=== PATIENT | male | born 1940 ===

== ENCOUNTER 2016-10-30 17:17 | Inpatient (IN) | payer MEDICARE ==
[2016-10-30] MEDS ORDERED: Sodium Chloride 0.9% 1,000 ML IV ONE (17:42)
[2016-10-30] MEDS ORDERED: cefTRIAXone IV 1 gm in Dextros 50 ML IV ONE (17:43)
[2016-10-30] MEDS ORDERED: Azithromycin 500 MG in Sodium Chloride 0.9% 250 ML IV STA (17:43)
--- NOTE | 2016-10-30 18:03 | RAD ---
PROCEDURE: CHEST RADIOGRAPH, 1 VIEW HISTORY: SOB COMPARISON: None available. FINDINGS: LUNGS: Suspicious for edis-fe-sspzjhpo pulmonary vascular congestion. PLEURA: No evidence of significant pleural effusion. Blunting of the left costophrenic angle. CARDIOVASCULAR: No evidence of significant cardiomegaly in this portable exam P OSSEOUS STRUCTURES: No significant abnormalities. VISUALIZED UPPER ABDOMEN: Normal. OTHER FINDINGS: None. IMPRESSION: Possible ftfq-an-vziwwawc pulmonary congestion.
[2016-10-30 18:05] LABS: BASO % 0.3 % (0.0-2.0); EOS % 0.3 % (0.0-4.0); HEMATOCRIT 39.3 % (35.0-51.0); LYMPH # 1.2 K/uL (1.0-4.3); LYMPH % 8.4 % (20.0-40.0); MEAN CELL VOLUME 65.6 fL (80.0-94.0); MEAN CORPUSCULAR HEMOGLOBIN 20.7 pg (27.0-31.0); MEAN CORPUSCULAR HGB CONC 31.5 g/dL (33.0-37.0); MEAN PLATELET VOLUME 8.7 fL (7.2-11.7); MONO # 10.9 K/uL (0.0-0.8); PLATELET COUNT 124 K/uL (130-400); RED CELL DISTRIBUTION WIDTH 15.9 % (11.5-14.5); WHITE BLOOD COUNT 13.9 K/uL (4.8-10.8)
[2016-10-30] MEDS ORDERED: Albuterol-Ipratrop 3 mg / 0.5 (3 ml) UD INH STA (18:14)
--- NOTE | 2016-10-30 18:15 | C.PDOC ---
History Of Present Illness 76 y/o male brought in by presents to the ED with complains of increased tremor, nonproductive cough and lethargy x3 days. Pt's baseline with tremor of alzheimers, worse today. Denies SOB, fever, vomiting, or any other complaints. Time Seen by Provider: 10/30/16 17:37 Chief Complaint (Nursing): Weakness/Neurological Deficit History Per: Patient History/Exam Limitations: no limitations Onset/Duration Of Symptoms: Days Current Symptoms Are (Timing): Still Present Fall Associated With With Symptoms: No Severity: Moderate Recent travel outside of the [place]: No - Symptoms Of CVA Recent Head Trauma: No Past Medical History Reviewed: Historical Data, Nursing Documentation, Vital Signs Vital Signs: Last Vital Signs Temp 101.6 F H 10/30/16 19:42 Pulse 107 H 10/30/16 19:26 Resp 20 10/30/16 19:26 BP 144/75 10/30/16 19:26 Pulse Ox 98 10/30/16 19:26 - Medical History PMH: HTN, Parkinson's Disease Family History: States: Unknown Family Hx - Social History Hx Alcohol Use: No Hx Substance Use: No Review Of Systems Except As Marked, All Systems Reviewed And Found Negative. Constitutional: Positive for: Other (lethargy). Negative for: Fever Respiratory: Positive for: Cough. Negative for: Shortness of Breath Gastrointestinal: Negative for: Vomiting Neurological: Positive for: Other (increased tremor) Physical Exam - Physical Exam Appears: Non-toxic, Other (elderly, kyphotic) Skin: Warm, Dry, No Rash, Other (skin tenting) Head: Atraumatic, Normacephalic Ear(s): Bilateral: Normal Nose: Normal Oral Mucosa: Dry Throat: Normal, No Erythema Neck: Normal, Normal ROM, Supple Chest: Symmetrical Cardiovascular: Rhythm Regular, No Murmur Respiratory: No Rales, No Rhonchi, No Wheezing, Other (poor cough effort, increased bronchial sounds bilateral lower lobes) Gastrointestinal/Abdominal: Normal Exam, Soft, No Tenderness, No Guarding, No Rebound Extremity: Normal ROM Extremity: Bilateral: Atraumatic Neurological/Psych: Normal Speech ED Course And Treatment - Laboratory Results Result Diagrams: 10/30/16 17:56 10/30/16 17:56 Lab Interpretation: Abnormal (trop neg.) ECG: Interpreted By Me ECG Rhythm: Sinus Tachycardia ECG Interpretation: Abnormal Rate From EC (BPM) O2 Sat by Pulse Oximetry: 94 (room air) Pulse Ox Interpretation: Abnormal - Radiology CXR: Interpreted by Me CXR Interpretation: Yes: Infiltrates (+ RLL and LLL, R heart boarder obscured) Progress Note: plan: EKG, labs, CXR, comtam, cozaar, rocephin, toradol, tylenol , sinimet Reevaluation Time: 19:07 Reassessment Condition: Improved - Physician Consult Information Outcome Of Conversation: 1800: d/w Dr. Alexys Muñiz- PMD, he refers pt to his partner/daughter Dr. Poonam Muñiz- in ED/bedside @ 1830 Medical Decision Making Medical Decision Making: suspecte pna and/or aspiration pna considering weak cough and advanced dementia and kyposis. started on rocephin/azithro empirically continue hydration. Disposition Doctor Will See Patient In The: Hospital Counseled Patient/Family Regarding: Studies Performed, Diagnosis - Disposition Disposition: HOSPITALIZED Disposition Time: 18:30 Condition: FAIR - Clinical Impression Clinical Impression: Pneumonia, Parkinsonian tremor - Scribe Statement The provider has reviewed the documentation as recorded by the Rachelibjoanne Walker Provider Attestation: All medical record entries made by the Areli were at my direction and personally dictated by me. I have reviewed the chart and agree that the record accurately reflects my personal performance of the history, physical exam, medical decision making, and the department course for this patient. I have also personally directed, reviewed, and agree with the discharge instructions and disposition.
[2016-10-30 18:16] LABS: CHLORIDE 97 mmol/L (98-107); SODIUM 136 mmol/L (132-148)
[2016-10-30 18:17] LABS: POTASSIUM 4.2 mmol/L (3.6-5.2)
[2016-10-30 18:19] LABS: ALKALINE PHOSPHATASE 70 U/L (38-126); AST/SGOT 46 U/L (17-59); BILIRUBIN,TOTAL 0.7 mg/dL (0.2-1.3); BLOOD UREA NITROGEN 17 mg/dL (9-20); CARBON DIOXIDE 27 mmol/L (22-30); GFR AFRICAN-AMERICAN > 60; TOTAL PROTEIN 8.2 g/dL (6.3-8.3)
[2016-10-30 18:20] LABS: ALT/SGPT 20 U/L (21-72); CALCIUM 8.3 mg/dl (8.6-10.4); GLUCOSE,RANDOM 108 mg/dL (75-110)
[2016-10-30 18:21] LABS: ALB/GLOB RATIO 1.1 (1.0-2.1)
[2016-10-30] MEDS ORDERED: cefTRIAXone IV 1 gm in Dextros 50 ML IVPB ONE (18:34)
[2016-10-30] MEDS ORDERED: Sodium Chloride 0.9% 1,000 ML ONE (18:35)
[2016-10-30] MEDS ORDERED: Azithromycin 500mg/250ML NS 500 MG/250 ML BAG IVPB ONE (18:35)
[2016-10-30] MEDS ORDERED: Albuterol-Ipratrop 3 mg / 0.5 (3 ml) UD ONE (18:38)
[2016-10-30 19:05] LABS: NEUTROPHIL 24 % (50-75); TOTAL CELLS COUNTED 100
[2016-10-30 19:07] LABS: BLASTS 63 % (0-0)
--- NOTE | 2016-10-30 23:29 | CP.PCM.HP ---
History of Present Illness - History of Present Illness History of Present Illness: 76 years old male complaining of a cough, fever, generalized weakness for the past few days, with increasing tremors. He is known to have a hypertension, a Parkinson's disease, a mild senile dementia. A CXR in the ED revealed mild pulmonary congestion and possible RLL infiltrates. Her wbc: 13.6. Present on Admission - Present on Admission Any Indicators Present on Admission: No Review of Systems - Constitutional Constitutional: Chills, Fever, Lethargy, Weakness - Respiratory Respiratory: Cough, Chest Congestion - Neurological Neurological: Tremor Past Patient History - Infectious Disease Hx of Infectious Diseases: None - Tetanus Immunizations Tetanus Immunization: Unknown - Past Social History Smoking Status: Never Smoked Alcohol: None Drugs: Denies Home Situation {Lives}: With Family Domestic Violence: Negative - CARDIAC Hx Hypertension: Yes - NEUROLOGICAL Hx Dementia: Yes Hx Parkinson's Disease: Yes - MUSCULOSKELETAL/RHEUMATOLOGICAL Hx Unsteady Gait: Yes - PSYCHIATRIC Hx Substance Use: No - SURGICAL HISTORY Other/Comment: Prostate surgery 2007 - ANESTHESIA Hx Anesthesia: No Meds Allergies/Adverse Reactions: Allergies Allergy/AdvReac Type Severity Reaction Status Date / Time No Known Allergies Allergy Unverified 10/30/16 17:21 Physical Exam - Constitutional Appears: No Acute Distress - Head Exam Head Exam: NORMAL INSPECTION - Eye Exam Eye Exam: Normal appearance - ENT Exam ENT Exam: Normal Exam - Neck Exam Neck exam: Positive for: Normal Inspection - Respiratory Exam Respiratory Exam: Rhonchi Additional comments: Rhonchi both bases. - Cardiovascular Exam Cardiovascular Exam: REGULAR RHYTHM - GI/Abdominal Exam GI & Abdominal Exam: Normal Bowel Sounds, Soft - Rectal Exam Rectal Exam: Deferred - Exam Exam: NORMAL INSPECTION - Back Exam Back exam: NORMAL INSPECTION - Neurological Exam Neurological exam: Alert, Oriented x3 - Psychiatric Exam Psychiatric exam: Anxious - Skin Skin Exam: Dry, Intact, Normal Color Results - Vital Signs Recent Vital Signs: Last Vital Signs Temp 98.6 F 10/30/16 21:27 Pulse 95 H 10/30/16 21:27 Resp 18 10/30/16 21:27 BP 115/61 10/30/16 21:27 Pulse Ox 97 10/30/16 21:27 - Labs Result Diagrams: 10/30/16 17:56 10/30/16 17:56 Assessment & Plan (1) Parkinsonian tremor Assessment and Plan: To continue anti-Parkinson's medications. Status: Chronic (2) Pneumonia Assessment and Plan: Sputum and blood cultures. Start empirically on Rocephin IV and Zithromax PO. Get an echo to assess cardiac chambers and valves. Status: Acute Decision To Admit - Pt Status Changed To: Hospital Disposition Of: Inpatient - Admit Certification Admit to Inpatient:: After my assessment, the patient will require hospitalization for at least two midnights. This is because of the severity of symptoms shown, intensity of services needed, and/or the medical risk in this patient being treated as an outpatient. - InPatient: Physician Admission Certification:: After my assessments, the patient requires hospitalization for at least 2 midnights. - . Bed Request Type: Regular
[2016-10-31] MEDS ORDERED: Pneumococcal 23-Valent Vaccine IM ONE (02:23)
[2016-10-31] MEDS: Enoxaparin 40 mg Syringe SC SCH (10:06)
--- NOTE | 2016-10-31 13:03 | RAD ---
PROCEDURE: CHEST RADIOGRAPH, 1 VIEW HISTORY: pneumonia COMPARISON: October 30, 2016. FINDINGS: LUNGS: Progressive right lower lobe infiltrate more confluent with air bronchograms likely acute pneumonia. PLEURA: No pneumothorax or pleural fluid seen. CARDIOVASCULAR: Stable cardiomegaly. OSSEOUS STRUCTURES: No significant abnormalities. VISUALIZED UPPER ABDOMEN: Normal. OTHER FINDINGS: None. IMPRESSION: Progressive right lower lobe infiltrate/pneumonia.
[2016-10-31] MEDS: Albuterol-Ipratrop 3 mg / 0.5 (3 ml) UD IH SCH (15:50)
--- NOTE | 2016-10-31 16:39 | CP.PCM.PN ---
Subjective - Date & Time of Evaluation Date of Evaluation: 10/31/16 Time of Evaluation: 14:00 - Subjective Subjective: Patient feels better with low grade fever. Repeated CXR reveals a RLL infiltrate. Pro-BNP slightly elevated, but echo result pending. Objective - Vital Signs/Intake and Output Vital Signs (last 24 hours): Temp Pulse Resp BP Pulse Ox 100.9 F H 87 22 108/61 97 10/31/16 16:21 10/31/16 15:50 10/31/16 15:50 10/31/16 15:50 10/31/16 15:50 Intake and Output: 10/31/16 10/31/16 06:59 18:59 Intake Total 350 Balance 350 - Medications Medications: Current Medications Acetaminophen (Tylenol 325mg Tab) 650 mg PO Q6 PRN PRN Reason: Fever >100.4 F Azithromycin (Zithromax) 500 mg PO DAILY [facility] Last Admin: 10/31/16 10:06 Dose: 500 mg Carbidopa/Levodopa (Sinemet) 1 tab PO TID [facility] Last Admin: 10/31/16 13:48 Dose: 1 tab Enoxaparin Sodium (Lovenox) 40 mg SC DAILY [facility] Last Admin: 10/31/16 10:06 Dose: 40 mg Entacapone (Comtan) 200 mg PO Q8 [facility] Guaifenesin/Dextromethorphan (Robitussin Dm) 10 ml PO Q4H PRN PRN Reason: Cough and congestion Ceftriaxone Sodium 1 gm/ (Sodium Chloride) 100 mls @ 100 mls/hr IVPB DAILY [facility] Last Admin: 10/31/16 10:06 Dose: 100 mls/hr Losartan Potassium (Cozaar) 100 mg PO DAILY [facility] Last Admin: 10/31/16 10:06 Dose: 100 mg - Constitutional Appears: No Acute Distress - Head Exam Head Exam: NORMAL INSPECTION - Eye Exam Eye Exam: Normal appearance - ENT Exam ENT Exam: Normal Exam - Respiratory Exam Respiratory Exam: Rhonchi Additional comments: Rhonchi heard at both bases. - Cardiovascular Exam Cardiovascular Exam: REGULAR RHYTHM - GI/Abdominal Exam GI & Abdominal Exam: Soft, Normal Bowel Sounds - Rectal Exam Rectal Exam: Deferred - Exam Exam: NORMAL INSPECTION - Extremities Exam Extremities Exam: Normal Inspection - Back Exam Back Exam: NORMAL INSPECTION - Neurological Exam Neurological Exam: Alert, Awake, Oriented x3 - Psychiatric Exam Psychiatric exam: Anxious - Skin Skin Exam: Dry, Intact, Normal Color Assessment and Plan (1) Parkinsonian tremor Status: Chronic (2) Pneumonia Assessment & Plan: To continue antibiotics. Status: Acute
--- NOTE | 2016-10-31 19:17 | CON ---
DATE: 10/31/2016 REASON FOR CONSULTATION: Tremors. HISTORY OF PRESENT ILLNESS: The patient is a 76-year-old male who was brought in by the with co mplaints of increasing tremor and lethargy over the last 3 days. The patient has a history of [place] son's disease. Last night his noticed that patient is having increase in his tremors and though t he was having a seizure. At the moment, she thinks tremors are a lot better. Denies any other new complaints. REVIEW OF SYSTEMS: Denies any headache, dizziness, chest pain. Positive for cough. Denies any ches t pain, abdominal pain, constipation, diarrhea, dysuria, pyuria, ____sputum production, hallucination s, bad dreams. PAST MEDICAL HISTORY: Includes hypertension, Parkinson's disease. MEDICATIONS: Include ceftriaxone, Comtan, Cozaar, Lovenox, Sinemet, Tylenol, Zithromax. ALLERGIES: No known drug allergies. SOCIAL HISTORY: The patient is a nonsmoker and nonalcoholic. Does not use any illicit drugs. FAMILY HISTORY: Reviewed and noncontributory to the case. PHYSICAL EXAMINATION: GENERAL: The patient is an elderly male lying on the bed, in no acute distress. VITAL SIGNS: His blood pressure is 108/61, heart rate is 87 per minute, breathing at a rate of 16 pe r minute, temperature is 100.9 degrees Fahrenheit. HEENT: Normocephalic, atraumatic. NECK: Supple. There are no carotid bruits. LUNGS: Clear. CARDIOVASCULAR: S1, S2 audible. No murmurs. ABDOMEN: Soft, nontender, bowel sounds present. NEUROLOGIC EXAMINATION: MENTAL STATUS: Awake, alert. He follows simple commands. He is oriented to self, place. CRANIAL NERVES: Pupils are 3 mm bilaterally reactive to light. Visual smith are full. Extraocular movements are intact. There is no facial asymmetry. Palate is upgoing bilaterally and tongue is mi dline. MOTOR: Tone shows positive cogwheeling in both upper extremities. Power is 4/5 all over. Reflexes 1+ and symmetrical. Plantars upgoing on the left side and downgoing on the right side. Gait is defe rred at the moment. Positive resting tremors noted in both upper extremities. SENSORY: Intact to soft touch and pinprick. LABORATORY DATA: Labs reviewed, shows WBC of 13.9, hemoglobin 12.4, hematocrit of 39.3, platelets of 124. Sodium is 136, potassium 4.2, chloride 97, carbon dioxide content of 27, BUN of 17, creatinine 0.9, and glucose of 108. IMPRESSION: Tremors secondary to Parkinson's disease which has been exacerbated likely secondary to underlying pneumonia and increased white cell count. RECOMMENDATIONS: 1. At this time, I will continue the patient on the same dose of Sinemet and Comtan. 2. If patient's tremors get worse again will consider giving very low dose of clonazepam 0.25 mg b.i .d. 3. I do not believe the patient had a seizure as patient was awake and alert and conversive during t he episode when he had increased tremors. 4. The patient to be continued on IV antibiotics. 5. The patient to be started on physical therapy for gait imbalance. 6. Please continue other treatment and supportive care. Thank you for the opportunity to participate in the care of this patient. Krishna Holland MD cc: [id number] TT: 10/31/2016 19:16:58 Confirmation # [id number] Dictation # [id number] el
[2016-10-31] MEDS: Albuterol-Ipratrop 3 mg / 0.5 (3 ml) UD INH SCH (19:46)
[2016-11-01] MEDS: guaiFENesin DM 200 mg-20 mg/10 ml UD PO PRN (00:27)
[2016-11-01] MEDS: Albuterol-Ipratrop 3 mg / 0.5 (3 ml) UD INH SCH ×4 (01:36→19:38)
[2016-11-01 07:18] LABS: BASO % 0.2 % (0.0-2.0); EOS % 0.1 % (0.0-4.0); HEMATOCRIT 33.7 % (35.0-51.0); MEAN CELL VOLUME 65.7 fL (80.0-94.0); MEAN PLATELET VOLUME 8.6 fL (7.2-11.7); MONO # 15.9 K/uL (0.0-0.8); MONO % 78.1 % (0.0-10.0); PLATELET COUNT 98 K/uL (130-400); RED CELL DISTRIBUTION WIDTH 15.7 % (11.5-14.5); WHITE BLOOD COUNT 20.3 K/uL (4.8-10.8)
[2016-11-01 07:54] LABS: CHLORIDE 100 mmol/L (98-107); POTASSIUM 3.8 mmol/L (3.6-5.2); SODIUM 135 mmol/L (132-148)
[2016-11-01 07:56] LABS: GFR AFRICAN-AMERICAN > 60
[2016-11-01 07:57] LABS: ALB/GLOB RATIO 0.9 (1.0-2.1); ALKALINE PHOSPHATASE 54 U/L (38-126); ALT/SGPT 34 U/L (21-72); AST/SGOT 52 U/L (17-59); BILIRUBIN,TOTAL 0.6 mg/dL (0.2-1.3); BLOOD UREA NITROGEN 17 mg/dL (9-20); CALCIUM 7.7 mg/dl (8.6-10.4); CARBON DIOXIDE 28 mmol/L (22-30); GLUCOSE,RANDOM 124 mg/dL (75-110); TOTAL PROTEIN 6.7 g/dL (6.3-8.3)
[2016-11-01] MEDS: Enoxaparin 40 mg Syringe SC SCH (09:41)
[2016-11-01 10:54] LABS: BASOPHIL 4 % (0-2); BLASTS 38 % (0-0); EOSINOPHIL 4 % (0-4); NEUTROPHIL 14 % (50-75); TOTAL CELLS COUNTED 100
[2016-11-01 10:59] LABS: LARGE PLATELETS PRESENT
[2016-11-02] MEDS: guaiFENesin DM 200 mg-20 mg/10 ml UD PO PRN (00:28)
[2016-11-02 07:36] LABS: BASO # 0.1 K/uL (0.0-0.2); BASO % 0.4 % (0.0-2.0); EOS # 0.1 K/uL (0.0-0.7); EOS % 0.3 % (0.0-4.0); HEMATOCRIT 36.9 % (35.0-51.0); LYMPH # 1.4 K/uL (1.0-4.3); LYMPH % 7.4 % (20.0-40.0); MEAN CELL VOLUME 65.5 fL (80.0-94.0); MONO # 15.9 K/uL (0.0-0.8); MONO % 82.3 % (0.0-10.0); NRBC % 0.1 % (0.0-2.0); PLATELET COUNT 105 K/uL (130-400); RED CELL DISTRIBUTION WIDTH 16.1 % (11.5-14.5); WHITE BLOOD COUNT 19.4 K/uL (4.8-10.8)
[2016-11-02] MEDS: Albuterol-Ipratrop 3 mg / 0.5 (3 ml) UD INH SCH ×3 (08:15→20:22)
[2016-11-02] MEDS: Enoxaparin 40 mg Syringe SC SCH (10:34)
[2016-11-02 11:35] LABS: NEUTROPHIL 9 % (50-75)
[2016-11-02 11:36] LABS: EOSINOPHIL 1 % (0-4); REACTIVE LYMPHOCYTES 5 % (0-0)
[2016-11-02 11:37] LABS: BLASTS 20 % (0-0); PROMYELOCYTE 33 % (0-0)
[2016-11-02 11:39] LABS: GIANT PLATELETS PRESENT; LARGE PLATELETS PRESENT
[2016-11-02 11:58] LABS: TOTAL CELLS COUNTED 100
[2016-11-03] MEDS: Albuterol-Ipratrop 3 mg / 0.5 (3 ml) UD INH SCH ×4 (01:17→20:06)
--- NOTE | 2016-11-03 09:20 | CON ---
DATE: 11/03/2016 This is a 76-year-old man who has an abnormal CBC. The patient cannot give me a history. He is lyin g in bed. PHYSICAL EXAMINATION: GENERAL: Lying flat in bed, no acute distress. SKIN: No petechiae, no bruises. HEENT: Anicteric. NODES: None palpable in the axillary, cervical, supraclavicular or inguinal regions. LUNGS: At present are clear. No vertebral tenderness. HEART: S1, S2. ABDOMEN: Shows no liver, no spleen, no tenderness, no rebound, no ascites. EXTREMITIES: No edema. CENTRAL NERVOUS SYSTEM: The patient has a constant tremor and he knows his name, but he is really no t conversing. LABORATORY FINDINGS: Show a white count of about 20,000 with severe left shift including blasts, abo ut 20% blasts, and markedly increasing promyelocytes, myelocytes, very leftward shift. I have ordered a BCR-ABL to rule out a chronic myelogenous leukemia acute crisis and we will have to see about doing a bone marrow aspiration and/or further testing a little later today. At present [facility], I have ordered these tests. Yordy Temple MD cc: [id number] TT: 11/03/2016 09:19:33 Confirmation # [id number] Dictation # [id number]
[2016-11-03] MEDS: Enoxaparin 40 mg Syringe SC SCH (11:22)
--- NOTE | 2016-11-03 12:41 | CARD ---
APPROVED REPORT EKG Measurement Heart [id number] CO 150P59 [id number] <Conclusion> Sinus tachycardia Possible Left atrial enlargement Borderline ECG
--- NOTE | 2016-11-03 17:01 | CP.PCM.PN ---
Subjective - Date & Time of Evaluation Date of Evaluation: 11/03/16 Time of Evaluation: 16:58 - Subjective Subjective: Patient has no complaint of chest pain, or SOB. Still has a productive cough. Seen by Dr Temple: Bone marrow biopsy contemplated. Echo: LVH with normal LVEF and grade I LV diastolic dysfunction. Objective - Vital Signs/Intake and Output Vital Signs (last 24 hours): Temp Pulse Resp BP Pulse Ox 97.8 F 89 20 122/66 95 11/03/16 15:00 11/03/16 15:00 11/03/16 15:00 11/03/16 15:00 11/03/16 15:00 Intake and Output: 11/03/16 11/03/16 06:59 18:59 Intake Total 450 Output Total 400 Balance 450 -400 - Medications Medications: Current Medications Acetaminophen (Tylenol 325mg Tab) 650 mg PO Q6 PRN PRN Reason: Fever >100.4 F Last Admin: 11/01/16 13:11 Dose: 650 mg Albuterol/Ipratropium (Duoneb 3 Mg/0.5 Mg (3 Ml) Ud) 3 ml INH RQ6 [facility] Last Admin: 11/03/16 14:44 Dose: Not Given Azithromycin (Zithromax) 500 mg PO DAILY [facility] Last Admin: 11/03/16 11:24 Dose: 500 mg Carbidopa/Levodopa (Sinemet) 1 tab PO TID [facility] Last Admin: 11/03/16 13:22 Dose: 1 tab Enoxaparin Sodium (Lovenox) 40 mg SC DAILY [facility] Last Admin: 11/03/16 11:22 Dose: 40 mg Entacapone (Comtan) 200 mg PO Q8H [facility] Last Admin: 11/03/16 13:22 Dose: 200 mg Guaifenesin/Dextromethorphan (Robitussin Dm) 10 ml PO Q4H PRN PRN Reason: Cough and congestion Last Admin: 11/02/16 00:28 Dose: 10 ml Ceftriaxone Sodium 1 gm/ (Sodium Chloride) 100 mls @ 100 mls/hr IVPB DAILY [facility] Last Admin: 11/03/16 11:23 Dose: 100 mls/hr Losartan Potassium (Cozaar) 100 mg PO DAILY [facility] Last Admin: 11/03/16 11:24 Dose: 100 mg - Labs Labs: 11/02/16 07:07 11/01/16 07:13 - Constitutional Appears: No Acute Distress, Chronically Ill - Head Exam Head Exam: NORMAL INSPECTION - Eye Exam Eye Exam: Normal appearance - ENT Exam ENT Exam: Normal Exam - Neck Exam Neck Exam: Normal Inspection - Respiratory Exam Additional comments: Rhonchi right base. - Cardiovascular Exam Cardiovascular Exam: REGULAR RHYTHM, Murmur - GI/Abdominal Exam GI & Abdominal Exam: Soft, Normal Bowel Sounds - Rectal Exam Rectal Exam: Deferred - Exam Exam: NORMAL INSPECTION - Extremities Exam Extremities Exam: Normal Inspection - Back Exam Back Exam: NORMAL INSPECTION - Neurological Exam Neurological Exam: Alert, Awake, Oriented x3 - Psychiatric Exam Psychiatric exam: Anxious - Skin Skin Exam: Intact, Normal Color, Warm Assessment and Plan (1) Parkinsonian tremor Assessment & Plan: To continue meds as per DR Nadira Holland. Status: Chronic (2) Pneumonia Status: Acute (3) Leukocytosis (leucocytosis) Assessment & Plan: Awaiting w/u by Dr Temple and bone marrow biopsy. Status: Acute - Assessment and Plan (Free Text) Assessment: To continue antibiotics, bronchodilators by nebulizer.
--- NOTE | 2016-11-03 17:31 | CP.PCM.PN ---
Subjective - Date & Time of Evaluation Date of Evaluation: 11/03/16 Time of Evaluation: 17:31 - Subjective Subjective: Peripheral blood showing 20% myeloid blasts. Plan- Will draw flow cytometry, LDH, coags and fibrinogen. Unclear if patient is a candidate for chemo, will need to be transferred to a facility for leukemia treatment. Have left message for regarding the need to have a discussion regarding lab work and diagnosis Objective - Vital Signs/Intake and Output Vital Signs (last 24 hours): Temp Pulse Resp BP Pulse Ox 97.8 F 89 20 122/66 95 11/03/16 15:00 11/03/16 15:00 11/03/16 15:00 11/03/16 15:00 11/03/16 15:00 Intake and Output: 11/03/16 11/03/16 06:59 18:59 Intake Total 450 Output Total 400 Balance 450 -400 - Medications Medications: Current Medications Acetaminophen (Tylenol 325mg Tab) 650 mg PO Q6 PRN PRN Reason: Fever >100.4 F Last Admin: 11/01/16 13:11 Dose: 650 mg Albuterol/Ipratropium (Duoneb 3 Mg/0.5 Mg (3 Ml) Ud) 3 ml INH RQ6 [facility] Last Admin: 11/03/16 14:44 Dose: Not Given Azithromycin (Zithromax) 500 mg PO DAILY [facility] Last Admin: 11/03/16 11:24 Dose: 500 mg Carbidopa/Levodopa (Sinemet) 1 tab PO TID [facility] Last Admin: 11/03/16 13:22 Dose: 1 tab Enoxaparin Sodium (Lovenox) 40 mg SC DAILY [facility] Last Admin: 11/03/16 11:22 Dose: 40 mg Entacapone (Comtan) 200 mg PO Q8H [facility] Last Admin: 11/03/16 13:22 Dose: 200 mg Guaifenesin/Dextromethorphan (Robitussin Dm) 10 ml PO Q4H PRN PRN Reason: Cough and congestion Last Admin: 11/02/16 00:28 Dose: 10 ml Ceftriaxone Sodium 1 gm/ (Sodium Chloride) 100 mls @ 100 mls/hr IVPB DAILY [facility] Last Admin: 11/03/16 11:23 Dose: 100 mls/hr Losartan Potassium (Cozaar) 100 mg PO DAILY [facility] Last Admin: 11/03/16 11:24 Dose: 100 mg - Labs Labs: 11/02/16 07:07 11/01/16 07:13
--- NOTE | 2016-11-03 17:34 | CARD ---
APPROVED REPORT EXAM: Two-dimensional and M-mode echocardiogram with Doppler and color Doppler. Other Information Quality : GoodRhythm : NSR INDICATION pulmonary congestion, pneumonia RISK FACTORS Hypertension M-Mode DIMENSIONS RVDd1.51 (2.1-3.2cm)Left Atrium (MM)3.39 (2.5-4.0cm) IVSd0.59 (0.7-1.1cm)Aortic Root3.02 (2.2-3.7cm) LVDd3.91 (4.0-5.6cm)Aortic Cusp Exc.1.18 (1.5-2.0cm) PWd1.00 (0.7-1.1cm)FS (%) 45 % LVDs2.14 (2.0-3.8cm)LVEF (%)77 (>50%) Aortic Valve AoV Peak Gmgvjeiu065.7cm/Nurys Peak GR.14mmHg Mitral Valve MV E Lkaqbnqm85.3cm/sMV A Vqmhkiow864.5cm/sE/A ratio0.6 TDI E/Lateral E'0.0E/Medial E'0.0 Tricuspid Valve TR Peak [id number]/sTR Peak Gr.[id number] LEFT VENTRICLE The left ventricle is normal size. Proximal septal thickening is noted. The left ventricular function is normal. The left ventricular ejection fraction is within the normal range. There is normal LV segmental wall motion. Transmitral Doppler flow pattern is Grade I-abnormal relaxation pattern. RIGHT VENTRICLE The right ventricle is normal size. There is normal right ventricular wall thickness. The right ventricular systolic function is normal. ATRIA The left atrium size is normal. The right atrium size is normal. AORTIC VALVE The aortic valve is moderately thickened. MITRAL VALVE The mitral valve is moderately thickened. TRICUSPID VALVE There is no tricuspid valve regurgitation noted. GREAT VESSELS The aortic root is normal in size. The IVC is normal in size and collapses >50% with inspiration. PERICARDIAL EFFUSION There is a trace loculated anterior pericardial effusion. <Conclusion> The left ventricle is normal size. Proximal septal thickening is noted. The left ventricular function is normal. The left ventricular ejection fraction is within the normal range. There is normal LV segmental wall motion. Transmitral Doppler flow pattern is Grade I-abnormal relaxation pattern.
[2016-11-03] MEDS: guaiFENesin DM 200 mg-20 mg/10 ml UD PO PRN (17:58)
[2016-11-04] MEDS: guaiFENesin DM 200 mg-20 mg/10 ml UD PO PRN (00:46)
[2016-11-04] MEDS: Albuterol-Ipratrop 3 mg / 0.5 (3 ml) UD INH SCH ×4 (01:50→19:04)
[2016-11-04 06:40] LABS: HEMATOCRIT 35.7 % (35.0-51.0); MEAN CELL VOLUME 64.9 fL (80.0-94.0); MEAN CORPUSCULAR HEMOGLOBIN 21.1 pg (27.0-31.0); MEAN CORPUSCULAR HGB CONC 32.5 g/dL (33.0-37.0); MEAN PLATELET VOLUME 8.9 fL (7.2-11.7); PLATELET COUNT 145 K/uL (130-400); RED CELL DISTRIBUTION WIDTH 15.6 % (11.5-14.5); WHITE BLOOD COUNT 36.7 K/uL (4.8-10.8)
[2016-11-04 07:13] LABS: INR 1.2
[2016-11-04] MEDS: Enoxaparin 40 mg Syringe SC SCH (11:37)
--- NOTE | 2016-11-04 12:06 | RAD ---
HISTORY: RLL infiltrates, F/U. COMPARISON: 10/31/2016 TECHNIQUE: Chest PA and lateral FINDINGS: LUNGS: Improving opacity at right base. No other abnormal pulmonary PLEURA: Opacity identified. CARDIOVASCULAR: Normal heart size. Right hilar prominence, likely due to oblique positioning of patient. OSSEOUS STRUCTURES: No significant abnormalities. VISUALIZED UPPER ABDOMEN: Normal. OTHER FINDINGS: None. IMPRESSION: Improving right basilar opacity.
[2016-11-04 13:25] LABS: BLASTS 34 % (0-0); NEUTROPHIL 8 % (50-75); REACTIVE LYMPHOCYTES 7 % (0-0); TOTAL CELLS COUNTED 100
[2016-11-04 13:28] LABS: LARGE PLATELETS PRESENT
--- NOTE | 2016-11-04 17:28 | CP.PCM.PN ---
Subjective - Date & Time of Evaluation Date of Evaluation: 11/04/16 Time of Evaluation: 17:15 - Subjective Subjective: Patient is in bed, denies feeling weak. Poor appetite, no bleeding reported. He is very slow to respond, both verbally and physical movements because of the Parkinson's disease, but is able to comprehend. Have discussed with patient and regarding the possibility of leukemia, they are reluctant to consider transfer to [place] at this time. Plan- Wait for flow results . Will discuss with daughter as well. Prognosis guarded, because of age , performance status and comorbidities. Consider PT Objective - Vital Signs/Intake and Output Vital Signs (last 24 hours): Temp Pulse Resp BP Pulse Ox 98.6 F 94 H 20 145/79 95 11/04/16 16:00 11/04/16 16:00 11/04/16 16:00 11/04/16 16:00 11/04/16 16:00 Intake and Output: 11/04/16 11/04/16 06:59 18:59 Intake Total 600 Balance 600 - Medications Medications: Current Medications Acetaminophen (Tylenol 325mg Tab) 650 mg PO Q6 PRN PRN Reason: Fever >100.4 F Last Admin: 11/01/16 13:11 Dose: 650 mg Albuterol/Ipratropium (Duoneb 3 Mg/0.5 Mg (3 Ml) Ud) 3 ml INH RQ6 [facility] Last Admin: 11/04/16 13:40 Dose: 3 ml Azithromycin (Zithromax) 500 mg PO DAILY [facility] Last Admin: 11/04/16 11:37 Dose: 500 mg Carbidopa/Levodopa (Sinemet) 1 tab PO TID [facility] Last Admin: 11/04/16 14:46 Dose: 1 tab Enoxaparin Sodium (Lovenox) 40 mg SC DAILY [facility] Last Admin: 11/04/16 11:37 Dose: 40 mg Entacapone (Comtan) 200 mg PO Q8H [facility] Last Admin: 11/04/16 11:34 Dose: 200 mg Guaifenesin/Dextromethorphan (Robitussin Dm) 10 ml PO Q4H PRN PRN Reason: Cough and congestion Last Admin: 11/04/16 00:46 Dose: 10 ml Ceftriaxone Sodium 1 gm/ (Sodium Chloride) 100 mls @ 100 mls/hr IVPB DAILY [facility] Last Admin: 11/04/16 11:35 Dose: 100 mls/hr Losartan Potassium (Cozaar) 100 mg PO DAILY [facility] Last Admin: 11/04/16 11:34 Dose: 100 mg - Labs Labs: 11/04/16 06:24 11/01/16 07:13 PT 13.8 SECONDS (9.7-12.2) H 11/04/16 06:24 INR 1.2 11/04/16 06:24 APTT 34 SECONDS (21-34) 11/04/16 06:24
--- NOTE | 2016-11-04 21:29 | CP.PCM.PN ---
Subjective - Date & Time of Evaluation Date of Evaluation: 11/04/16 Time of Evaluation: 21:27 - Subjective Subjective: Patient feels better, afebrile. WBC: 36,000. CXR: improving RLL infiltrates. Awaiting hematoly w/u. Objective - Vital Signs/Intake and Output Vital Signs (last 24 hours): Temp Pulse Resp BP Pulse Ox 98.6 F 94 H 20 145/79 95 11/04/16 16:00 11/04/16 16:00 11/04/16 16:00 11/04/16 16:00 11/04/16 16:00 - Medications Medications: Current Medications Acetaminophen (Tylenol 325mg Tab) 650 mg PO Q6 PRN PRN Reason: Fever >100.4 F Last Admin: 11/01/16 13:11 Dose: 650 mg Albuterol/Ipratropium (Duoneb 3 Mg/0.5 Mg (3 Ml) Ud) 3 ml INH RQ6 [facility] Last Admin: 11/04/16 19:04 Dose: 3 ml Azithromycin (Zithromax) 500 mg PO DAILY [facility] Last Admin: 11/04/16 11:37 Dose: 500 mg Carbidopa/Levodopa (Sinemet) 1 tab PO TID [facility] Last Admin: 11/04/16 17:55 Dose: 1 tab Enoxaparin Sodium (Lovenox) 40 mg SC DAILY [facility] Last Admin: 11/04/16 11:37 Dose: 40 mg Entacapone (Comtan) 200 mg PO Q8H [facility] Last Admin: 11/04/16 17:52 Dose: 200 mg Guaifenesin/Dextromethorphan (Robitussin Dm) 10 ml PO Q4H PRN PRN Reason: Cough and congestion Last Admin: 11/04/16 00:46 Dose: 10 ml Ceftriaxone Sodium 1 gm/ (Sodium Chloride) 100 mls @ 100 mls/hr IVPB DAILY [facility] Last Admin: 11/04/16 11:35 Dose: 100 mls/hr Losartan Potassium (Cozaar) 100 mg PO DAILY [facility] Last Admin: 11/04/16 11:34 Dose: 100 mg Zolpidem Tartrate (Ambien) 5 mg PO HS PRN PRN Reason: Insomnia - Labs Labs: 11/04/16 06:24 11/01/16 07:13 PT 13.8 SECONDS (9.7-12.2) H 11/04/16 06:24 INR 1.2 11/04/16 06:24 APTT 34 SECONDS (21-34) 11/04/16 06:24 - Constitutional Appears: No Acute Distress, Chronically Ill - Head Exam Head Exam: NORMAL INSPECTION - Eye Exam Eye Exam: Normal appearance - ENT Exam ENT Exam: Normal Exam - Neck Exam Neck Exam: Normal Inspection - Respiratory Exam Respiratory Exam: Rhonchi Additional comments: Rhonchi at the right base. - Cardiovascular Exam Cardiovascular Exam: REGULAR RHYTHM - GI/Abdominal Exam GI & Abdominal Exam: Soft, Normal Bowel Sounds - Rectal Exam Rectal Exam: Deferred - Exam Exam: NORMAL INSPECTION - Extremities Exam Extremities Exam: Normal Inspection - Back Exam Back Exam: NORMAL INSPECTION - Neurological Exam Neurological Exam: Alert, Awake, Oriented x3 - Psychiatric Exam Psychiatric exam: Anxious - Skin Skin Exam: Intact, Normal Color, Warm Assessment and Plan (1) Parkinsonian tremor Status: Chronic (2) Pneumonia Assessment & Plan: To continue antibiotics. Status: Acute (3) Leukocytosis (leucocytosis) Assessment & Plan: Awaiting w/u. Status: Acute
[2016-11-05] MEDS: Albuterol-Ipratrop 3 mg / 0.5 (3 ml) UD INH SCH ×4 (01:19→20:06)
[2016-11-05] MEDS: Enoxaparin 40 mg Syringe SC SCH (10:13)
--- NOTE | 2016-11-05 21:29 | CP.PCM.PN ---
Subjective - Date & Time of Evaluation Date of Evaluation: 11/05/16 Time of Evaluation: 21:27 - Subjective Subjective: Patient feels better, with less productive cough, no SOB, no fever. Awaiting oncology w/u. Needs PT. Discussed subacute rehabilitation with the family. Objective - Vital Signs/Intake and Output Vital Signs (last 24 hours): Temp Pulse Resp BP Pulse Ox 99.4 F 101 H 20 132/74 95 11/05/16 15:00 11/05/16 15:00 11/05/16 15:00 11/05/16 15:00 11/05/16 15:00 Intake and Output: 11/05/16 11/06/16 18:59 06:59 Intake Total 950 Balance 950 - Medications Medications: Current Medications Acetaminophen (Tylenol 325mg Tab) 650 mg PO Q6 PRN PRN Reason: Fever >100.4 F Last Admin: 11/01/16 13:11 Dose: 650 mg Albuterol/Ipratropium (Duoneb 3 Mg/0.5 Mg (3 Ml) Ud) 3 ml INH RQ6 [facility] Last Admin: 11/05/16 20:06 Dose: 3 ml Azithromycin (Zithromax) 500 mg PO DAILY [facility] Last Admin: 11/05/16 10:13 Dose: 500 mg Carbidopa/Levodopa (Sinemet) 1 tab PO TID [facility] Last Admin: 11/05/16 17:51 Dose: 1 tab Enoxaparin Sodium (Lovenox) 40 mg SC DAILY [facility] Last Admin: 11/05/16 10:13 Dose: 40 mg Entacapone (Comtan) 200 mg PO Q8H [facility] Last Admin: 11/05/16 17:51 Dose: 200 mg Guaifenesin/Dextromethorphan (Robitussin Dm) 10 ml PO Q4H PRN PRN Reason: Cough and congestion Last Admin: 11/04/16 00:46 Dose: 10 ml Ceftriaxone Sodium 1 gm/ (Sodium Chloride) 100 mls @ 100 mls/hr IVPB DAILY [facility] Last Admin: 11/05/16 10:14 Dose: 100 mls/hr Losartan Potassium (Cozaar) 100 mg PO DAILY [facility] Last Admin: 11/05/16 10:13 Dose: 100 mg Zolpidem Tartrate (Ambien) 5 mg PO HS PRN PRN Reason: Insomnia - Labs Labs: 11/04/16 06:24 11/01/16 07:13 PT 13.8 SECONDS (9.7-12.2) H 11/04/16 06:24 INR 1.2 11/04/16 06:24 APTT 34 SECONDS (21-34) 11/04/16 06:24 - Constitutional Appears: No Acute Distress - Head Exam Head Exam: NORMAL INSPECTION - Eye Exam Eye Exam: Normal appearance - ENT Exam ENT Exam: Normal Exam - Neck Exam Neck Exam: Normal Inspection - Respiratory Exam Respiratory Exam: Rhonchi Additional comments: Few rhonchi heard at the right base. - Cardiovascular Exam Cardiovascular Exam: REGULAR RHYTHM - GI/Abdominal Exam GI & Abdominal Exam: Soft, Normal Bowel Sounds - Rectal Exam Rectal Exam: Deferred - Exam Exam: NORMAL INSPECTION - Extremities Exam Extremities Exam: Normal Inspection - Back Exam Back Exam: NORMAL INSPECTION - Neurological Exam Neurological Exam: Alert, Oriented x3 - Psychiatric Exam Psychiatric exam: Anxious - Skin Skin Exam: Dry, Intact, Normal Color, Warm Assessment and Plan (1) Parkinsonian tremor Status: Chronic (2) Pneumonia Assessment & Plan: To continue antibiotics. Status: Acute (3) Leukocytosis (leucocytosis) Assessment & Plan: Awaiting w/u. Status: Acute
[2016-11-06 00:22] LABS: BCR-ABL PRIOR RESULT NOT GIVEN; BCR-ABL SOURCE BLOOD; P190 BCR-ABL1 NOT DETECTED; P210 BCR-ABL1 NOT DETECTED
[2016-11-06] MEDS: Albuterol-Ipratrop 3 mg / 0.5 (3 ml) UD INH SCH ×4 (01:10→19:43)
[2016-11-06 07:48] LABS: HEMATOCRIT 36.7 % (35.0-51.0); MEAN CELL VOLUME 65.7 fL (80.0-94.0); MEAN CORPUSCULAR HEMOGLOBIN 20.8 pg (27.0-31.0); MEAN CORPUSCULAR HGB CONC 31.7 g/dL (33.0-37.0); MEAN PLATELET VOLUME 8.8 fL (7.2-11.7); PLATELET COUNT 179 K/uL (130-400); RED CELL DISTRIBUTION WIDTH 15.8 % (11.5-14.5)
[2016-11-06 07:57] LABS: WHITE BLOOD COUNT 51.4 K/uL (4.8-10.8)
[2016-11-06] MEDS: Enoxaparin 40 mg Syringe SC SCH (09:43)
[2016-11-06] MEDS: guaiFENesin DM 200 mg-20 mg/10 ml UD PO PRN (09:43)
[2016-11-06 09:46] LABS: BLASTS 36 % (0-0); NEUTROPHIL 9 % (50-75); REACTIVE LYMPHOCYTES 4 % (0-0); TOTAL CELLS COUNTED 100
--- NOTE | 2016-11-06 17:47 | CP.PCM.PN ---
Subjective - Date & Time of Evaluation Date of Evaluation: 11/06/16 Time of Evaluation: 17:40 - Subjective Subjective: The patient is weak, poorly communicative. Discussed the results of flow cytometry with his daughter, showing 74% blasts, M5 subtype. also discussed with her the urgency of making a decision regarding treatment. They will have a family discussion and let me know regarding the transfer. have also briefly discussed DNR/DNI, blood drawing and palliative care. Plan-Await decision from the family regarding treatment versus palliative care. Because of the rapidly increasing WBC count, will start Hydrea and monitor daily CBC Objective - Vital Signs/Intake and Output Vital Signs (last 24 hours): Temp Pulse Resp BP Pulse Ox 98.7 F 98 H 20 99/66 L 95 11/06/16 16:00 11/06/16 16:00 11/06/16 16:00 11/06/16 16:00 11/06/16 16:00 Intake and Output: 11/06/16 11/06/16 06:59 18:59 Intake Total 320 340 Output Total 0 Balance 320 340 - Medications Medications: Current Medications Acetaminophen (Tylenol 325mg Tab) 650 mg PO Q6 PRN PRN Reason: Fever >100.4 F Last Admin: 11/01/16 13:11 Dose: 650 mg Albuterol/Ipratropium (Duoneb 3 Mg/0.5 Mg (3 Ml) Ud) 3 ml INH RQ6 [facility] Last Admin: 11/06/16 13:33 Dose: 3 ml Azithromycin (Zithromax) 500 mg PO DAILY [facility] Last Admin: 11/06/16 09:43 Dose: 500 mg Carbidopa/Levodopa (Sinemet) 1 tab PO TID [facility] Last Admin: 11/06/16 17:33 Dose: 1 tab Enoxaparin Sodium (Lovenox) 40 mg SC DAILY [facility] Last Admin: 11/06/16 09:43 Dose: 40 mg Entacapone (Comtan) 200 mg PO Q8H [facility] Last Admin: 11/06/16 17:34 Dose: 200 mg Guaifenesin/Dextromethorphan (Robitussin Dm) 10 ml PO Q4H PRN PRN Reason: Cough and congestion Last Admin: 11/06/16 09:43 Dose: 10 ml Hydroxyurea (Hydrea) 500 mg PO BID [facility] Last Admin: 11/06/16 17:34 Dose: 500 mg Ceftriaxone Sodium 1 gm/ (Sodium Chloride) 100 mls @ 100 mls/hr IVPB DAILY [facility] Last Admin: 11/06/16 09:50 Dose: 100 mls/hr Losartan Potassium (Cozaar) 100 mg PO DAILY [facility] Last Admin: 11/06/16 09:43 Dose: 100 mg Zolpidem Tartrate (Ambien) 5 mg PO HS PRN PRN Reason: Insomnia - Labs Labs: 11/06/16 07:23 11/01/16 07:13 PT 13.8 SECONDS (9.7-12.2) H 11/04/16 06:24 INR 1.2 11/04/16 06:24 APTT 34 SECONDS (21-34) 11/04/16 06:24
[2016-11-06 19:48] LABS: HEMATOCRIT 34.5 % (35.0-51.0); MEAN CELL VOLUME 64.8 fL (80.0-94.0); MEAN CORPUSCULAR HEMOGLOBIN 20.9 pg (27.0-31.0); MEAN CORPUSCULAR HGB CONC 32.3 g/dL (33.0-37.0); MEAN PLATELET VOLUME 8.9 fL (7.2-11.7); PLATELET COUNT 185 K/uL (130-400); RED CELL DISTRIBUTION WIDTH 15.6 % (11.5-14.5)
[2016-11-06 20:00] LABS: WHITE BLOOD COUNT 49.6 K/uL (4.8-10.8)
[2016-11-06 21:12] LABS: NEUTROPHIL 4 % (50-75); TOTAL CELLS COUNTED 100
[2016-11-06 21:15] LABS: BLASTS 46 % (0-0)
--- NOTE | 2016-11-06 21:42 | CP.PCM.PN ---
Subjective - Date & Time of Evaluation Date of Evaluation: 11/06/16 Time of Evaluation: 20:00 - Subjective Subjective: Patient lethargic and weak today. Afebrile with no respiratory distress. WBC: 50 ,000 with 70% blasts. Discussed with patient's family about transfer to [place]. Objective - Vital Signs/Intake and Output Vital Signs (last 24 hours): Temp Pulse Resp BP Pulse Ox 98.7 F 98 H 20 99/66 L 95 11/06/16 16:00 11/06/16 16:00 11/06/16 16:00 11/06/16 16:00 11/06/16 16:00 Intake and Output: 11/06/16 11/07/16 18:59 06:59 Intake Total 340 Output Total 0 Balance 340 - Medications Medications: Current Medications Acetaminophen (Tylenol 325mg Tab) 650 mg PO Q6 PRN PRN Reason: Fever >100.4 F Last Admin: 11/01/16 13:11 Dose: 650 mg Albuterol/Ipratropium (Duoneb 3 Mg/0.5 Mg (3 Ml) Ud) 3 ml INH RQ6 [facility] Last Admin: 11/06/16 19:43 Dose: 3 ml Azithromycin (Zithromax) 500 mg PO DAILY [facility] Last Admin: 11/06/16 09:43 Dose: 500 mg Carbidopa/Levodopa (Sinemet) 1 tab PO TID [facility] Last Admin: 11/06/16 17:33 Dose: 1 tab Enoxaparin Sodium (Lovenox) 40 mg SC DAILY [facility] Last Admin: 11/06/16 09:43 Dose: 40 mg Entacapone (Comtan) 200 mg PO Q8H [facility] Last Admin: 11/06/16 17:34 Dose: 200 mg Guaifenesin/Dextromethorphan (Robitussin Dm) 10 ml PO Q4H PRN PRN Reason: Cough and congestion Last Admin: 11/06/16 09:43 Dose: 10 ml Hydroxyurea (Hydrea) 500 mg PO BID [facility] Last Admin: 11/06/16 17:34 Dose: 500 mg Ceftriaxone Sodium 1 gm/ (Sodium Chloride) 100 mls @ 100 mls/hr IVPB DAILY [facility] Last Admin: 11/06/16 09:50 Dose: 100 mls/hr Losartan Potassium (Cozaar) 100 mg PO DAILY [facility] Last Admin: 11/06/16 09:43 Dose: 100 mg Zolpidem Tartrate (Ambien) 5 mg PO HS PRN PRN Reason: Insomnia - Labs Labs: 11/06/16 19:42 11/01/16 07:13 PT 13.8 SECONDS (9.7-12.2) H 11/04/16 06:24 INR 1.2 11/04/16 06:24 APTT 34 SECONDS (21-34) 11/04/16 06:24 - Constitutional Appears: No Acute Distress, Chronically Ill - Head Exam Head Exam: NORMAL INSPECTION - Eye Exam Eye Exam: Normal appearance - ENT Exam ENT Exam: Normal Exam - Neck Exam Neck Exam: Normal Inspection - Respiratory Exam Additional comments: Rhonchi heard at the right base. - Cardiovascular Exam Cardiovascular Exam: REGULAR RHYTHM - GI/Abdominal Exam GI & Abdominal Exam: Soft, Normal Bowel Sounds - Rectal Exam Rectal Exam: Deferred - Exam Exam: NORMAL INSPECTION - Extremities Exam Extremities Exam: Normal Inspection - Back Exam Back Exam: NORMAL INSPECTION - Neurological Exam Additional comments: Lethargic. - Psychiatric Exam Additional comments: Lethargic. - Skin Skin Exam: Dry, Intact, Normal Color, Warm Assessment and Plan (1) Parkinsonian tremor Assessment & Plan: To continue same meds. Status: Chronic (2) Pneumonia Assessment & Plan: To continue antibiotics. Status: Acute (3) Leukocytosis (leucocytosis) Assessment & Plan: For possible transfer to [facility] for further management. Status: Acute
[2016-11-07] MEDS: Albuterol-Ipratrop 3 mg / 0.5 (3 ml) UD INH SCH ×4 (01:15→20:28)
[2016-11-07 07:40] LABS: HEMATOCRIT 35.3 % (35.0-51.0); MEAN CELL VOLUME 65.5 fL (80.0-94.0); MEAN CORPUSCULAR HEMOGLOBIN 20.8 pg (27.0-31.0); MEAN CORPUSCULAR HGB CONC 31.7 g/dL (33.0-37.0); MEAN PLATELET VOLUME 8.9 fL (7.2-11.7); PLATELET COUNT 192 K/uL (130-400); RED CELL DISTRIBUTION WIDTH 15.4 % (11.5-14.5)
[2016-11-07 07:44] LABS: WHITE BLOOD COUNT 46.4 K/uL (4.8-10.8)
[2016-11-07 07:45] LABS: POTASSIUM 4.1 mmol/L (3.6-5.2)
[2016-11-07 07:48] LABS: CALCIUM 7.9 mg/dl (8.6-10.4)
[2016-11-07] MEDS: guaiFENesin DM 200 mg-20 mg/10 ml UD PO PRN (10:37)
[2016-11-07] MEDS: Enoxaparin 40 mg Syringe SC SCH (10:38)
[2016-11-07 11:02] LABS: EOS # 0.4 K/uL (0.0-0.7); LYMPH # 4.7 K/uL (1.0-4.3)
[2016-11-07 11:05] LABS: BLASTS 36 % (0-0); EOSINOPHIL 2 % (0-4); NEUTROPHIL 5 % (50-75); TOTAL CELLS COUNTED 100
[2016-11-07 11:06] LABS: GIANT PLATELETS PRESENT; LARGE PLATELETS PRESENT
--- NOTE | 2016-11-07 21:27 | CP.PCM.PN ---
Subjective - Date & Time of Evaluation Date of Evaluation: 11/07/16 Time of Evaluation: 12:30 - Subjective Subjective: Patient is more alert today, with a better appetite, and no SOB. WBC: 46.4. Awaiting family's decision whether to transfer the patient to [facility] or not. Objective - Vital Signs/Intake and Output Vital Signs (last 24 hours): Temp Pulse Resp BP Pulse Ox 98.9 F 100 H 20 136/71 98 11/07/16 15:01 11/07/16 15:01 11/07/16 15:01 11/07/16 15:00 11/07/16 15:01 Intake and Output: 11/07/16 11/08/16 18:59 06:59 Intake Total 400 Balance 400 - Medications Medications: Current Medications Acetaminophen (Tylenol 325mg Tab) 650 mg PO Q6 PRN PRN Reason: Fever >100.4 F Last Admin: 11/01/16 13:11 Dose: 650 mg Albuterol/Ipratropium (Duoneb 3 Mg/0.5 Mg (3 Ml) Ud) 3 ml INH RQ6 [facility] Last Admin: 11/07/16 20:28 Dose: 3 ml Azithromycin (Zithromax) 500 mg PO DAILY [facility] Last Admin: 11/07/16 10:37 Dose: 500 mg Carbidopa/Levodopa (Sinemet) 1 tab PO TID [facility] Last Admin: 11/07/16 18:21 Dose: 1 tab Enoxaparin Sodium (Lovenox) 40 mg SC DAILY [facility] Last Admin: 11/07/16 10:38 Dose: 40 mg Entacapone (Comtan) 200 mg PO Q8H [facility] Last Admin: 11/07/16 18:21 Dose: 200 mg Guaifenesin/Dextromethorphan (Robitussin Dm) 10 ml PO Q4H PRN PRN Reason: Cough and congestion Last Admin: 11/07/16 10:37 Dose: 10 ml Hydroxyurea (Hydrea) 500 mg PO BID [facility] Last Admin: 11/07/16 18:08 Dose: 500 mg Ceftriaxone Sodium 1 gm/ (Sodium Chloride) 100 mls @ 100 mls/hr IVPB DAILY [facility] Last Admin: 11/07/16 10:43 Dose: 100 mls/hr Losartan Potassium (Cozaar) 100 mg PO DAILY [facility] Last Admin: 11/07/16 10:14 Dose: 100 mg Zolpidem Tartrate (Ambien) 5 mg PO HS PRN PRN Reason: Insomnia - Labs Labs: 11/07/16 07:26 11/07/16 07:26 PT 13.8 SECONDS (9.7-12.2) H 11/04/16 06:24 INR 1.2 11/04/16 06:24 APTT 34 SECONDS (21-34) 11/04/16 06:24 - Constitutional Appears: No Acute Distress - Head Exam Head Exam: NORMAL INSPECTION - Eye Exam Eye Exam: Normal appearance - ENT Exam ENT Exam: Normal Exam - Neck Exam Neck Exam: Normal Inspection - Respiratory Exam Additional comments: Few rhonchi heard at the right base. - Cardiovascular Exam Cardiovascular Exam: REGULAR RHYTHM - GI/Abdominal Exam GI & Abdominal Exam: Soft, Normal Bowel Sounds - Rectal Exam Rectal Exam: Deferred - Exam Exam: NORMAL INSPECTION - Extremities Exam Extremities Exam: Normal Inspection - Back Exam Back Exam: NORMAL INSPECTION - Neurological Exam Neurological Exam: Alert, Awake, Oriented x3 - Psychiatric Exam Psychiatric exam: Anxious - Skin Skin Exam: Dry, Intact, Normal Color, Warm Assessment and Plan (1) Parkinsonian tremor Status: Chronic (2) Pneumonia Assessment & Plan: To continue antibiotics. 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 Status: Acute
[2016-11-08] MEDS: Albuterol-Ipratrop 3 mg / 0.5 (3 ml) UD INH SCH ×4 (01:44→20:56)
[2016-11-08] MEDS: Enoxaparin 40 mg Syringe SC SCH (09:27)
--- NOTE | 2016-11-08 20:00 | CP.PCM.PN ---
Subjective - Date & Time of Evaluation Date of Evaluation: 11/08/16 Time of Evaluation: 16:45 - Subjective Subjective: Patient has no complaint of SOB. Alert, oriented, afebrile. Patient agrees to be transferred to [facility]. Objective - Vital Signs/Intake and Output Vital Signs (last 24 hours): Temp Pulse Resp BP Pulse Ox 99.5 F 104 H 20 109/61 95 11/08/16 16:10 11/08/16 16:10 11/08/16 16:10 11/08/16 16:10 11/08/16 16:10 Intake and Output: 11/08/16 11/09/16 18:59 06:59 Intake Total 120 Balance 120 - Medications Medications: Current Medications Acetaminophen (Tylenol 325mg Tab) 650 mg PO Q6 PRN PRN Reason: Fever >100.4 F Last Admin: 11/01/16 13:11 Dose: 650 mg Albuterol/Ipratropium (Duoneb 3 Mg/0.5 Mg (3 Ml) Ud) 3 ml INH RQ6 [facility] Last Admin: 11/08/16 01:44 Dose: Not Given Azithromycin (Zithromax) 500 mg PO DAILY [facility] Last Admin: 11/08/16 09:28 Dose: 500 mg Carbidopa/Levodopa (Sinemet) 1 tab PO TID [facility] Last Admin: 11/08/16 17:12 Dose: 1 tab Enoxaparin Sodium (Lovenox) 40 mg SC DAILY [facility] Last Admin: 11/08/16 09:27 Dose: 40 mg Entacapone (Comtan) 200 mg PO Q8H [facility] Last Admin: 11/08/16 17:12 Dose: 200 mg Guaifenesin/Dextromethorphan (Robitussin Dm) 10 ml PO Q4H PRN PRN Reason: Cough and congestion Last Admin: 11/07/16 10:37 Dose: 10 ml Hydroxyurea (Hydrea) 500 mg PO DAILY [facility] Ceftriaxone Sodium 1 gm/ (Sodium Chloride) 100 mls @ 100 mls/hr IVPB DAILY [facility] Last Admin: 11/08/16 09:32 Dose: 100 mls/hr Losartan Potassium (Cozaar) 100 mg PO DAILY [facility] Last Admin: 11/08/16 09:27 Dose: 100 mg Zolpidem Tartrate (Ambien) 5 mg PO HS PRN PRN Reason: Insomnia - Labs Labs: 11/07/16 07:26 11/07/16 07:26 PT 13.8 SECONDS (9.7-12.2) H 11/04/16 06:24 INR 1.2 11/04/16 06:24 APTT 34 SECONDS (21-34) 11/04/16 06:24 - Constitutional Appears: No Acute Distress, Chronically Ill - Head Exam Head Exam: NORMAL INSPECTION - Eye Exam Eye Exam: Normal appearance - ENT Exam ENT Exam: Normal Exam - Neck Exam Neck Exam: Normal Inspection - Respiratory Exam Additional comments: Rhonchi at the right base. - Cardiovascular Exam Cardiovascular Exam: REGULAR RHYTHM, Murmur - GI/Abdominal Exam GI & Abdominal Exam: Soft, Normal Bowel Sounds - Rectal Exam Rectal Exam: Deferred - Extremities Exam Extremities Exam: Normal Inspection - Back Exam Back Exam: NORMAL INSPECTION - Neurological Exam Neurological Exam: Alert, Awake, Oriented x3 - Psychiatric Exam Psychiatric exam: Anxious - Skin Skin Exam: Dry, Intact, Normal Color, Warm Assessment and Plan (1) Parkinsonian tremor Status: Chronic (2) Pneumonia Assessment & Plan: To continue antibiotics. 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 To be transferred to [facility]. Status: Acute
[2016-11-09] MEDS: Albuterol-Ipratrop 3 mg / 0.5 (3 ml) UD INH SCH ×4 (01:07→19:48)
[2016-11-09 07:12] LABS: HEMATOCRIT 35.7 % (35.0-51.0); MEAN CELL VOLUME 65.2 fL (80.0-94.0); MEAN CORPUSCULAR HEMOGLOBIN 20.5 pg (27.0-31.0); MEAN CORPUSCULAR HGB CONC 31.4 g/dL (33.0-37.0); MEAN PLATELET VOLUME 9.3 fL (7.2-11.7); PLATELET COUNT 162 K/uL (130-400); RED CELL DISTRIBUTION WIDTH 15.6 % (11.5-14.5); WHITE BLOOD COUNT 22.9 K/uL (4.8-10.8)
[2016-11-09 08:38] LABS: POTASSIUM 4.7 mmol/L (3.6-5.2)
[2016-11-09 08:40] LABS: ALB/GLOB RATIO 0.9 (1.0-2.1); BILIRUBIN,TOTAL 0.7 mg/dL (0.2-1.3); TOTAL PROTEIN 7.4 g/dL (6.3-8.3)
[2016-11-09 08:41] LABS: CALCIUM 7.8 mg/dl (8.6-10.4)
[2016-11-09 09:21] LABS: METAMYELOCYTE 2 % (0-0); TOTAL CELLS COUNTED 100
[2016-11-09 09:32] LABS: NEUTROPHIL 7 % (50-75)
[2016-11-09 09:34] LABS: BLASTS 36 % (0-0)
[2016-11-09 09:37] LABS: GIANT PLATELETS PRESENT; LARGE PLATELETS PRESENT
--- NOTE | 2016-11-09 09:45 | RAD ---
HISTORY: F/U RLL infiltrate COMPARISON: 11/04/2016 TECHNIQUE: Chest PA and lateral FINDINGS: LUNGS: Examination technically limited in lateral projection. Stable minimal residual opacity at right base. No infiltrate elsewhere. PLEURA: No pleural effusion. Nonspecific mild elevation of right hemidiaphragm. CARDIOVASCULAR: Mild congestive change. Normal heart size. OSSEOUS STRUCTURES: No significant abnormalities. VISUALIZED UPPER ABDOMEN: Normal. OTHER FINDINGS: None. IMPRESSION: Stable minimal residual opacity at right base. Nonspecific elevation right hemidiaphragm. Mild congestive change. Technically limited examination.
--- NOTE | 2016-11-09 12:45 | CP.PCM.CON ---
History of Present Illness - History of Present Illness History of Present Illness: 76 years old male complaining of a cough, fever, generalized weakness for the past few days, with increasing tremors. He is known to have a hypertension, a Parkinson's disease, a mild senile dementia. A CXR in the ED revealed mild pulmonary congestion and possible RLL infiltrates. Her wbc: 13.6. Admitted for pneumonia and ytreated with Iv ABs PMH: PARKINSONS DEMENTIA PROSTATE CA HTN PSH; PROSTATECTOMY SOCIAL- FORMER SMOKER ONLY BLADDER APPEAR DISTENDED- POSSIBLE OBSTRUCTIVE UROPATHY WILL HAVE DIAZ PLACED STAT OBTAIN RENAL WORKUP Review of Systems - Review of Systems Systems not reviewed;Unavailable: Dementia Past Patient History - Infectious Disease Hx of Infectious Diseases: None - Tetanus Immunizations Tetanus Immunization: Unknown - Past Medical History & Family History Past Medical History?: Yes - Past Social History Smoking Status: Former Smoker Chewing Tobacco Use: No Cigar Use: No - CARDIAC Hx Cardiac Disorders: Yes Hx Hypertension: Yes - PULMONARY Hx Respiratory Disorders: No - NEUROLOGICAL Hx Neurological Disorder: Yes Hx Alzheimer's Disease: Yes Hx Dementia: Yes Hx Parkinson's Disease: Yes - HEENT Hx HEENT Problems: No - RENAL Hx Chronic Kidney Disease: No - ENDOCRINE/METABOLIC Hx Endocrine Disorders: No - HEMATOLOGICAL/ONCOLOGICAL Hx Blood Disorders: No - INTEGUMENTARY Hx Dermatological Problems: No - MUSCULOSKELETAL/RHEUMATOLOGICAL Hx Falls: Yes - GASTROINTESTINAL Hx Gastrointestinal Disorders: No - GENITOURINARY/GYNECOLOGICAL Hx Genitourinary Disorders: Yes Hx Prostate Problems: Yes (prostatectomy 2007) - PSYCHIATRIC Hx Substance Use: No - SURGICAL HISTORY Hx Surgeries: Yes Other/Comment: Prostate surgery 2007 - ANESTHESIA Hx Anesthesia: Yes Hx Anesthesia Reactions: No Hx Malignant Hyperthermia: No Has any member of the family had a problem w/ anesthesia?: No Meds Allergies/Adverse Reactions: Allergies Allergy/AdvReac Type Severity Reaction Status Date / Time No Known Allergies Allergy Unverified 10/30/16 17:21 - Medications Medications: Current Medications Acetaminophen (Tylenol 325mg Tab) 650 mg PO Q6 PRN PRN Reason: Fever >100.4 F Last Admin: 11/01/16 13:11 Dose: 650 mg Albuterol/Ipratropium (Duoneb 3 Mg/0.5 Mg (3 Ml) Ud) 3 ml INH RQ6 [facility] Last Admin: 11/09/16 01:07 Dose: Not Given Azithromycin (Zithromax) 500 mg PO DAILY [facility] Last Admin: 11/09/16 12:22 Dose: Not Given Carbidopa/Levodopa (Sinemet) 1 tab PO TID [facility] Last Admin: 11/09/16 12:22 Dose: Not Given Entacapone (Comtan) 200 mg PO Q8H [facility] Last Admin: 11/09/16 12:23 Dose: Not Given Guaifenesin/Dextromethorphan (Robitussin Dm) 10 ml PO Q4H PRN PRN Reason: Cough and congestion Last Admin: 11/07/16 10:37 Dose: 10 ml Heparin Sodium (Porcine) (Heparin) 5,000 units SC Q8 [facility] Hydroxyurea (Hydrea) 500 mg PO DAILY [facility] Last Admin: 11/09/16 12:22 Dose: Not Given Ceftriaxone Sodium 1 gm/ (Sodium Chloride) 100 mls @ 100 mls/hr IVPB DAILY [facility] Last Admin: 11/09/16 12:16 Dose: 100 mls/hr Zolpidem Tartrate (Ambien) 5 mg PO HS PRN PRN Reason: Insomnia Physical Exam - Constitutional Appears: No Acute Distress, Chronically Ill - Head Exam Head Exam: ATRAUMATIC, NORMAL INSPECTION - Eye Exam Eye Exam: EOMI, Normal appearance - Neck Exam Neck exam: Positive for: Normal Inspection. Negative for: Tenderness - Respiratory Exam Respiratory Exam: Clear to Auscultation Bilateral, NORMAL BREATHING PATTERN - Cardiovascular Exam Cardiovascular Exam: REGULAR RHYTHM, +S1 - GI/Abdominal Exam GI & Abdominal Exam: Distended, Soft - Extremities Exam Extremities exam: Positive for: normal inspection. Negative for: tenderness - Neurological Exam Neurological exam: Altered, Motor Sensory Deficit - Skin Skin Exam: Dry, Warm Results - Vital Signs Recent Vital Signs: Last Vital Signs Temp 98.3 F 11/09/16 07:00 Pulse 106 H 11/09/16 07:00 Resp 20 11/09/16 07:00 BP 143/68 11/09/16 07:00 Pulse Ox 90 L 11/09/16 07:00 - Labs Result Diagrams: 11/09/16 07:01 11/09/16 07:01 Labs: Laboratory Results - last 24 hr 11/09/16 11/09/16 07:01 07:01 WBC 22.9 H D RBC 5.47 Hgb 11.2 L Hct 35.7 MCV 65.2 L MCH 20.5 L MCHC 31.4 L RDW 15.6 H Plt Count 162 MPV 9.3 Neutrophils % (Manual) 7 L Lymphocytes % (Manual) 11 L Monocytes % (Manual) 44 H Metamyelocytes % 2 H Blast Cells % 36 H Platelet Estimate Normal Large Platelets Present Giant Platelets Present Hypochromasia (manual) Slight Poikilocytosis (manual Slight Anisocytosis (manual) Slight Microcytosis (manual) Slight Ovalocytes Slight Sodium 149 H Potassium 4.7 Chloride 112 H Carbon Dioxide 20 L Anion Gap 22 H BUN 107 H* D Creatinine 3.5 H Est GFR ( Amer) 21 Est GFR (Non-Af Amer) 17 Random Glucose 117 H Calcium 7.8 L Total Bilirubin 0.7 AST 230 H D ALT 101 H D Alkaline Phosphatase 79 Total Protein 7.4 Albumin 3.6 Globulin 3.8 Albumin/Globulin Ratio 0.9 L Assessment & Plan (1) MELISSA (acute kidney injury) Status: Acute (2) Leukocytosis (leucocytosis) Status: Acute (3) Pneumonia Status: Acute (4) Parkinsonian tremor Status: Chronic - Assessment and Plan (Free Text) Plan: WILL HAVE DIAZ PLACED RENAL WORKUP IV FLUIDS
[2016-11-09] MEDS: Sodium Chloride 0.9% 1,000 ML IV SCH (13:52)
[2016-11-09 14:47] LABS: PHOSPHOROUS 9.3 mg/dL (2.5-4.5)
[2016-11-09 14:48] LABS: MAGNESIUM 2.7 mg/dL (1.6-2.3)
--- NOTE | 2016-11-09 15:09 | US ---
PROCEDURE: Ultrasound of the Kidneys HISTORY: MELISSA COMPARISON: None available. TECHNIQUE: Sonogram of the kidneys. FINDINGS: RIGHT KIDNEY: Measures: 10.5 x 5.3 x 5.6 cm. Echogenic renal parenchyma. No obstructing calculus or hydronephrosis identified. Evidence of vascular calcifications. LEFT KIDNEY: Measures: 11.3 x 5.4 x 5.6 cm. Echogenic renal parenchyma. No obstructing calculus or hydronephrosis identified. Evidence of vascular calcifications. OTHER FINDINGS: Under distended urinary bladder precludes adequate evaluation. IMPRESSION: Echogenic renal parenchyma may be seen in the setting of medical renal disease.
--- NOTE | 2016-11-09 15:35 | CP.PCM.CON ---
History of Present Illness - History of Present Illness History of Present Illness: palliative consult Requested by Ravi LUKE Reason: goals of care Patient is a 76 yo male admitted on 10/30/2016 with increased tremor, nonproducrive cough and lethargy for 3 astudillo. The CXR upon admission was suggesting pneumonia and Rocephin Iv was started. During hospital's stay WBC marivel up to 46.4 from 13.6 on admission, than droppd to 22.0 today. The BUN and Taffy Puller are elevated at 107/3.5. Patient remains lethargic most of time with periods of alertness. As per , prior to this patient was able to ambulate alone, talk and eat. PMH: Parkinsons, HTN denies Alzheimer and Dementia Hx of Soc. hx: lives at home, Fam Hx: unknown Review of Systems - Review of Systems Systems not reviewed;Unavailable: Acuity of Condition Past Patient History - Infectious Disease Hx of Infectious Diseases: None - Tetanus Immunizations Tetanus Immunization: Unknown - Past Medical History & Family History Past Medical History?: Yes - Past Social History Smoking Status: Former Smoker Chewing Tobacco Use: No Cigar Use: No - CARDIAC Hx Cardiac Disorders: Yes Hx Hypertension: Yes - PULMONARY Hx Respiratory Disorders: No - NEUROLOGICAL Hx Neurological Disorder: Yes Hx Alzheimer's Disease: Yes Hx Dementia: Yes Hx Parkinson's Disease: Yes - HEENT Hx HEENT Problems: No - RENAL Hx Chronic Kidney Disease: No - ENDOCRINE/METABOLIC Hx Endocrine Disorders: No - HEMATOLOGICAL/ONCOLOGICAL Hx Blood Disorders: No - INTEGUMENTARY Hx Dermatological Problems: No - MUSCULOSKELETAL/RHEUMATOLOGICAL Hx Falls: Yes - GASTROINTESTINAL Hx Gastrointestinal Disorders: No - GENITOURINARY/GYNECOLOGICAL Hx Genitourinary Disorders: Yes Hx Prostate Problems: Yes (prostatectomy 2007) - PSYCHIATRIC Hx Substance Use: No - SURGICAL HISTORY Hx Surgeries: Yes Other/Comment: Prostate surgery 2007 - ANESTHESIA Hx Anesthesia: Yes Hx Anesthesia Reactions: No Hx Malignant Hyperthermia: No Has any member of the family had a problem w/ anesthesia?: No Meds Allergies/Adverse Reactions: Allergies Allergy/AdvReac Type Severity Reaction Status Date / Time No Known Allergies Allergy Unverified 10/30/16 17:21 - Medications Medications: Current Medications Acetaminophen (Tylenol 325mg Tab) 650 mg PO Q6 PRN PRN Reason: Fever >100.4 F Last Admin: 11/01/16 13:11 Dose: 650 mg Acetaminophen (Tylenol 650 Mg Supp) 650 mg [place] Q6 PRN PRN Reason: Fever >100.4 F Last Admin: 11/09/16 15:11 Dose: 650 mg Albuterol/Ipratropium (Duoneb 3 Mg/0.5 Mg (3 Ml) Ud) 3 ml INH RQ6 [facility] Last Admin: 11/09/16 13:31 Dose: 3 ml Azithromycin (Zithromax) 500 mg PO DAILY [facility] Last Admin: 11/09/16 12:22 Dose: Not Given Carbidopa/Levodopa (Sinemet) 1 tab PO TID [facility] Last Admin: 11/09/16 14:09 Dose: Not Given Entacapone (Comtan) 200 mg PO Q8H [facility] Last Admin: 11/09/16 12:23 Dose: Not Given Guaifenesin/Dextromethorphan (Robitussin Dm) 10 ml PO Q4H PRN PRN Reason: Cough and congestion Last Admin: 11/07/16 10:37 Dose: 10 ml Heparin Sodium (Porcine) (Heparin) 5,000 units SC Q8 [facility] Last Admin: 11/09/16 15:11 Dose: 5,000 units Hydroxyurea (Hydrea) 500 mg PO DAILY [facility] Last Admin: 11/09/16 12:22 Dose: Not Given Ceftriaxone Sodium 1 gm/ (Sodium Chloride) 100 mls @ 100 mls/hr IVPB DAILY [facility] Last Admin: 11/09/16 12:16 Dose: 100 mls/hr Sodium Chloride (Sodium Chloride 0.9%) 1,000 mls @ 75 mls/hr IV .[id number] [facility] Last Admin: 11/09/16 13:52 Dose: 75 mls/hr Zolpidem Tartrate (Ambien) 5 mg PO HS PRN PRN Reason: Insomnia Physical Exam - Constitutional Appears: Chronically Ill - Head Exam Head Exam: ATRAUMATIC, NORMAL INSPECTION, NORMOCEPHALIC - Eye Exam Eye Exam: EOMI, Normal appearance, PERRL Pupil Exam: NORMAL ACCOMODATION, PERRL - ENT Exam ENT Exam: Normal Exam - Neck Exam Neck exam: Positive for: Normal Inspection - Respiratory Exam Respiratory Exam: Decreased Breath Sounds - Cardiovascular Exam Cardiovascular Exam: Tachycardia, +S1, +S2 - GI/Abdominal Exam GI & Abdominal Exam: Diminished Bowel Sounds - Rectal Exam Rectal Exam: Deferred - Exam Exam: NORMAL INSPECTION - Extremities Exam Extremities exam: Positive for: normal inspection - Back Exam Back exam: NORMAL INSPECTION - Neurological Exam Neurological exam: Motor Sensory Deficit - Psychiatric Exam Psychiatric exam: Flat Affect - Skin Skin Exam: Normal Color, Warm Results - Vital Signs Recent Vital Signs: Last Vital Signs Temp 101.2 F H 11/09/16 15:11 Pulse 106 H 11/09/16 07:00 Resp 20 11/09/16 07:00 BP 143/68 11/09/16 07:00 Pulse Ox 90 L 11/09/16 07:00 - Labs Result Diagrams: 11/09/16 07:01 11/09/16 07:01 Labs: Laboratory Results - last 24 hr 11/09/16 11/09/16 07:01 07:01 WBC 22.9 H D RBC 5.47 Hgb 11.2 L Hct 35.7 MCV 65.2 L MCH 20.5 L MCHC 31.4 L RDW 15.6 H Plt Count 162 MPV 9.3 Neutrophils % (Manual) 7 L Lymphocytes % (Manual) 11 L Monocytes % (Manual) 44 H Metamyelocytes % 2 H Blast Cells % 36 H Platelet Estimate Normal Large Platelets Present Giant Platelets Present Hypochromasia (manual) Slight Poikilocytosis (manual Slight Anisocytosis (manual) Slight Microcytosis (manual) Slight Ovalocytes Slight Sodium 149 H Potassium 4.7 Chloride 112 H Carbon Dioxide 20 L Anion Gap 22 H BUN 107 H* D Creatinine 3.5 H Est GFR ( Amer) 21 Est GFR (Non-Af Amer) 17 Random Glucose 117 H Calcium 7.8 L Phosphorus 9.3 H Magnesium 2.7 H Total Bilirubin 0.7 AST 230 H D ALT 101 H D Alkaline Phosphatase 79 Total Protein 7.4 Albumin 3.6 Globulin 3.8 Albumin/Globulin Ratio 0.9 L Assessment & Plan - Assessment and Plan (Free Text) Assessment: palliative consult Code status: Full Code, there is no advance directive on chart, ROS unobtained due to lethargy I reviewed medical records, all diagnostic studis, examined patient in the bed and discussed goals of care with his Flora at bed side. Patient is alert, lethargic and not able to participate in discussion. Patient was sleeping at time of exam, easily aroused with very short concentration span. As per nursing patient's appetite has improved. On exam HR fast, rhythm irregular, no murmur, 106 BPM. At 3 pm low grade temp of 101.2 was recorded. With at bed side I reviewed patient's clinical presentation and elicited her goals of care for the patient. She stated that was awaiting for transfer to [facility] . The showed poor insight of her condition, being fixated on time prior the admission when patient was more self sufficient. I reviewed with her the process of Dementia and suggested that it was chronic, progressive disease . Further I discussed the Code status for this patient. The stated that patient has never made any Living will. I suggested that now when his mental status has changed, she should be one to make medical decision for her . She agreed and suggested that she has never had discussion about end of life care and does not know hat his wishes were. Code status meaning reviewed with . The was not able to make decision regarding Code status and would like to discuss it with her daughter Yajaira julien ). Impression * This is acutely ill patient diagnosed with Pneumonia * Patient is lethargic and unable to discuss goals of care * Patient's wishes for the end of life care are not known * Patient's unable to decide on code status; wants to discuss it with her daughter * requesting transfer to [facility] Suggestion * Full Code * Assist with ADLs * Promote safety * F/U with transfer to [facility] Thank you for consulting Palliative Care
--- NOTE | 2016-11-09 15:54 | CP.PCM.PN ---
Subjective - Date & Time of Evaluation Date of Evaluation: 11/09/16 Time of Evaluation: 15:39 - Subjective Subjective: The patient seems very weak, poorly responsive New findings of decreased urine output, increased creatinine, increased LFTs. 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 New abnormal kidney function likely multifactorial- tumor lysis, dehydration/ infection, ? obstruction(h/o prostate cancer). Seen by nephrology and urology. Overall prognosis very poor. Will be transferred to [facility] when a bed is available, but given the new developments it is unclear if the patient is a candidate for chemotherapy. Objective - Vital Signs/Intake and Output Vital Signs (last 24 hours): Temp Pulse Resp BP Pulse Ox 101.2 F H 106 H 20 143/68 90 L 11/09/16 15:11 11/09/16 07:00 11/09/16 07:00 11/09/16 07:00 11/09/16 07:00 Intake and Output: 11/09/16 11/09/16 06:59 18:59 Intake Total 50 Balance 50 - Medications Medications: Current Medications Acetaminophen (Tylenol 325mg Tab) 650 mg PO Q6 PRN PRN Reason: Fever >100.4 F Last Admin: 11/01/16 13:11 Dose: 650 mg Acetaminophen (Tylenol 650 Mg Supp) 650 mg [place] Q6 PRN PRN Reason: Fever >100.4 F Last Admin: 11/09/16 15:11 Dose: 650 mg Albuterol/Ipratropium (Duoneb 3 Mg/0.5 Mg (3 Ml) Ud) 3 ml INH RQ6 [facility] Last Admin: 11/09/16 13:31 Dose: 3 ml Azithromycin (Zithromax) 500 mg PO DAILY [facility] Last Admin: 11/09/16 12:22 Dose: Not Given Carbidopa/Levodopa (Sinemet) 1 tab PO TID [facility] Last Admin: 11/09/16 14:09 Dose: Not Given Entacapone (Comtan) 200 mg PO Q8H [facility] Last Admin: 11/09/16 12:23 Dose: Not Given Guaifenesin/Dextromethorphan (Robitussin Dm) 10 ml PO Q4H PRN PRN Reason: Cough and congestion Last Admin: 11/07/16 10:37 Dose: 10 ml Heparin Sodium (Porcine) (Heparin) 5,000 units SC Q8 [facility] Last Admin: 11/09/16 15:11 Dose: 5,000 units Hydroxyurea (Hydrea) 500 mg PO DAILY [facility] Last Admin: 11/09/16 12:22 Dose: Not Given Ceftriaxone Sodium 1 gm/ (Sodium Chloride) 100 mls @ 100 mls/hr IVPB DAILY [facility] Last Admin: 11/09/16 12:16 Dose: 100 mls/hr Sodium Chloride (Sodium Chloride 0.9%) 1,000 mls @ 75 mls/hr IV .[id number] [facility] Last Admin: 11/09/16 13:52 Dose: 75 mls/hr Zolpidem Tartrate (Ambien) 5 mg PO HS PRN PRN Reason: Insomnia - Labs Labs: 11/09/16 07:01 11/09/16 07:01 PT 13.8 SECONDS (9.7-12.2) H 11/04/16 06:24 INR 1.2 11/04/16 06:24 APTT 34 SECONDS (21-34) 11/04/16 06:24
--- NOTE | 2016-11-09 16:09 | PCM.URO ---
Urology Progress Note - Objective Lab Results Last 24 Hours: Laboratory Results - last 24 hr 11/09/16 11/09/16 07:01 07:01 WBC 22.9 H D RBC 5.47 Hgb 11.2 L Hct 35.7 MCV 65.2 L MCH 20.5 L MCHC 31.4 L RDW 15.6 H Plt Count 162 MPV 9.3 Neutrophils % (Manual) 7 L Lymphocytes % (Manual) 11 L Monocytes % (Manual) 44 H Metamyelocytes % 2 H Blast Cells % 36 H Platelet Estimate Normal Large Platelets Present Giant Platelets Present Hypochromasia (manual) Slight Poikilocytosis (manual Slight Anisocytosis (manual) Slight Microcytosis (manual) Slight Ovalocytes Slight Sodium 149 H Potassium 4.7 Chloride 112 H Carbon Dioxide 20 L Anion Gap 22 H BUN 107 H* D Creatinine 3.5 H Est GFR ( Amer) 21 Est GFR (Non-Af Amer) 17 Random Glucose 117 H Calcium 7.8 L Phosphorus 9.3 H Magnesium 2.7 H Total Bilirubin 0.7 AST 230 H D ALT 101 H D Alkaline Phosphatase 79 Total Protein 7.4 Albumin 3.6 Globulin 3.8 Albumin/Globulin Ratio 0.9 L Intake & Output: Intake & Output 11/08/16 11/09/16 11/09/16 18:59 06:59 18:59 Intake Total 120 50 Balance 120 50 Intake: Intake, IV Amount 100 Left Hand 100 Oral 20 50 Other: # Bowel Movements 1 Vital Signs: Vital Signs - 24 hr 11/08/16 11/08/16 11/09/16 16:10 23:12 07:00 Temperature 99.5 F 98.3 F 98.3 F Pulse Rate 104 H 89 106 H Respiratory 20 18 20 Rate Blood Pressure 109/61 122/78 143/68 O2 Sat by Pulse 95 98 90 L Oximetry 11/09/16 15:11 Temperature 101.2 F H Pulse Rate Respiratory Rate Blood Pressure O2 Sat by Pulse Oximetry
--- NOTE | 2016-11-09 17:03 | OP ---
PROCEDURE DATE: 11/09/2016 This is a bedside procedure. PREOPERATIVE DIAGNOSES: Urinary retention, renal failure, elevated BUN and creatinine, history of pr ostate cancer, status post a robotic prostatectomy, status post radiation treatments. POSTOPERATIVE DIAGNOSES: Urinary retention, renal failure, elevated BUN and creatinine, history of p rostate cancer, status post a robotic prostatectomy, status post radiation treatments. PROCEDURE: Difficult insertion of Borrego catheter; in the end we inserted a [address] We drained out about less than 50 mL of clear yellow urine. COMPLICATIONS: There were no complications. BLOOD LOSS: Less than 10 mL. INDICATIONS: See history and physical, consultation. A very pleasant gentleman. He is 76 years old . His is at the bedside. History is per the chart, per Dr. Melara, per the patient's . He had a radical robotic prostatectomy in 2007 with . He also had radiation treatments. Meanwhile, he was in the hospital for an exacerbation of an acute AML. He is noted to be with an elevated BUN and creatinine, a little febrile. , they wanted a Borrego catheter inserted. The nurse was unable to insert one. We tried with some difficulty for a regular catheter, but gently and carefully we were able to get a 12-Turkmen Borrego catheter, and after we drain ed out about 20 mL of urine we inflated the balloon. There were no complications and the Borrego was left to straight drainage. PROCEDURE: At the bed, I explained to the what I am planning to do. Gently, with 2 tubes of lidocaine, and under sterile technique, we inserted a Borrego catheter, Coude t ip catheter. Initially, a little difficult to insert the catheter, but once we were at the region where the bladde r neck would be, we gently manipulated and catheter went in and he drained clear yellow urine. The p atient tolerated this without complication. I secured it in place with the mesentery with some silk tape. There were no complications. Shay Adam MD cc: [id number] TT: 11/09/2016 17:02:12 sary
--- NOTE | 2016-11-09 17:22 | CON ---
DATE: 11/09/2016 UROLOGY CONSULTATION REASON FOR CONSULTATION: Borrego catheter insertion. HISTORY OF PRESENT ILLNESS: The patient is a very pleasant gentleman who is under the care of Dr. Ankush linares and Dr. Muñiz. He is admitted, noted to have renal insufficiency, renal failure, elevated BUN and creatinine. This is relatively new for the patient. The patient is somewhat lethargic and difficult to evaluate. History is mostly from the chart, from the consultants and also from the patient and the . The schuyler wei has a history of prostate cancer treated with a robotic prostatectomy in 2007. He subsequentl y had radiation treatments. As far as she knows now there are no problems. Today, the patient is admitted with pneumonia, fever and acute exacerbation of his AML. He is actual ly being transferred apparently to [facility], but urology was asked to ins ert a Borrego catheter. The nurses have tried and they need it for monitoring. PAST MEDICAL AND SURGICAL HISTORY: As listed. REVIEW OF SYSTEMS: ABDOMEN: difficult to evaluate, but it feels a little distended. GENITOURINARY: He has a normal male phallus discharge. Meatus within relatively normal limits . RECTAL: Deferred. LABORATORIES: See chart. As mentioned, the BUN and creatinine are noted to be elevated. I do want to mention of course the wh ite count is 50,000, but again this is just an exacerbation of his AML and oncology is on the case. From a BUN standpoint, his BUN and creatinine when he came in were 62/2.0 and today's BUN and creatin ine are 107/3.5. labs are significantly noted. See the separately dictated procedure note, but basically we were able to insert a Borrego catheter. Shelby rubio has some kind of bladder neck contracture. It does not go smoothly in, but with a 12-Lithuanian Borrego we got a Borrego in. In summary, this is a very pleasant 76-year-old gentleman who we were able to insert a Borrego catheter , see the separately dictated note for procedure note. Once we did this, we inserted a Borrego catheter via the urethra and we drained out at least 20 mL and then we inflated the balloon. The patient will be followed up and followed along while he is here. If not, the patient will have other urologic followup depending on his clinical course. DIAGNOSES: Urinary retention, bladder neck contracture, azotemia and renal failure. At this point, the patient has an indwelling Borrego catheter. The recommendations will be for hydrati on, antibiotics and then will follow along. Shay Adam MD cc: [id number] TT: 11/09/2016 17:22:20 Confirmation # [id number] Dictation # [id number] mn
--- NOTE | 2016-11-09 18:22 | CP.PCM.CON ---
History of Present Illness - History of Present Illness History of Present Illness: INFECTIOUS DISEASE CONSULTATION BREONNA LOPEZ MD, FACP 3T 359-A 11/09/2016 CHART REVIEWED PT EXAMINED CASE DISCUSSED WITH STAFF AND FAMILY THIS PATIENT IS A 76 YEAR OLD MALE ADMITTED 10/30/2016 FOR POSSIBLE PNEUMONIA. HIS SYMPTOMS APPARENTLY INCLUDE BUT LIMITED TO INCREASED TREMORS AND BORA CHILLS WITH DECREASED PO INTAKE PROGRESSIVELY. HE FAILED OUTPT THERAPY AND ADMISSION WAS ADVISED. AN INFECTIOUS DISEASE CONSULTATION WAS REQUESTED TODAY SECONDARY ELEVATED TEMPERATURES AND WITH MARKEDLY ELEVATED WBC RANGING FROM THE 50,000-46,000-AND 22,000! PMHX: PARKINSONS SYNDROME/DISEASE HTN PROSTATE CANCER S/P SURGERY AND RADIOATION TREATMENT IN THE PAST. DENIES ALLERGIES EXSMOKER RARE ETOH FAMILY HX NOT APPLICABLE AT THIS POINT IN TIME ROS: TEMPERATURE, CHILLS, LETHARGY BED BOUND NO N,V,D,C,, RASH MARKED DIAPHORESIS WITH HIS TEMPERATURES Review of Systems - Review of Systems Systems not reviewed;Unavailable: Altered Mental Status - Constitutional Constitutional: Anorexia, Chills, Excessive Sweating, Fatigue, Fever, Lethargy, Malaise, Night Sweats, Weight Loss - EENT Nose/Mouth/Throat: Dry Mouth, Halitosis - Cardiovascular Cardiovascular: Diaphoresis, Edema, Orthopnea, Palpitations, Rapid Heart Rate - Respiratory Respiratory: Dyspnea - Gastrointestinal Gastrointestinal: absent: Diarrhea, Loose Stools, Melena, Temesmus, Vomiting - Genitourinary Genitourinary: Difficulty Urinating, Nocturia, Urinary Frequency - Musculoskeletal Musculoskeletal: Atrophy, Muscle Weakness, Stiffness - Neurological Neurological: Abnormal Movements, Disequilibrium, Frequent Falls, Weakness - Psychiatric Psychiatric: Confusion - Endocrine Endocrine: Palpitations Past Patient History - Infectious Disease Hx of Infectious Diseases: None - Tetanus Immunizations Tetanus Immunization: Unknown - Past Medical History & Family History Past Medical History?: Yes Pertinent Family History: NOT AVAILABLE/APPLICABLE AT PRESENT! - Past Social History Smoking Status: Former Smoker Chewing Tobacco Use: No Cigar Use: No Alcohol: Occasional Drugs: Denies Home Situation {Lives}: With Family Domestic Violence: Negative - CARDIAC Hx Cardiac Disorders: Yes Hx Hypertension: Yes - PULMONARY Hx Respiratory Disorders: No - NEUROLOGICAL Hx Neurological Disorder: Yes Hx Alzheimer's Disease: Yes Hx Dementia: Yes Hx Parkinson's Disease: Yes - HEENT Hx HEENT Problems: No - RENAL Hx Chronic Kidney Disease: No - ENDOCRINE/METABOLIC Hx Endocrine Disorders: No - HEMATOLOGICAL/ONCOLOGICAL Hx Blood Disorders: No - INTEGUMENTARY Hx Dermatological Problems: No - MUSCULOSKELETAL/RHEUMATOLOGICAL Hx Falls: Yes - GASTROINTESTINAL Hx Gastrointestinal Disorders: No - GENITOURINARY/GYNECOLOGICAL Hx Genitourinary Disorders: Yes Hx Prostate Problems: Yes (prostatectomy 2007) - PSYCHIATRIC Hx Substance Use: No - SURGICAL HISTORY Hx Surgeries: Yes Other/Comment: Prostate surgery 2007 - ANESTHESIA Hx Anesthesia: Yes Hx Anesthesia Reactions: No Hx Malignant Hyperthermia: No Has any member of the family had a problem w/ anesthesia?: No Meds Allergies/Adverse Reactions: Allergies Allergy/AdvReac Type Severity Reaction Status Date / Time No Known Allergies Allergy Unverified 10/30/16 17:21 - Medications Medications: Current Medications Acetaminophen (Tylenol 325mg Tab) 650 mg PO Q6 PRN PRN Reason: Fever >100.4 F Last Admin: 11/01/16 13:11 Dose: 650 mg Acetaminophen (Tylenol 650 Mg Supp) 650 mg [place] Q6 PRN PRN Reason: Fever >100.4 F Last Admin: 11/09/16 15:11 Dose: 650 mg Albuterol/Ipratropium (Duoneb 3 Mg/0.5 Mg (3 Ml) Ud) 3 ml INH RQ6 [facility] Last Admin: 11/09/16 13:31 Dose: 3 ml Carbidopa/Levodopa (Sinemet) 1 tab PO TID [facility] Last Admin: 11/09/16 14:09 Dose: Not Given Entacapone (Comtan) 200 mg PO Q8H [facility] Last Admin: 11/09/16 12:23 Dose: Not Given Guaifenesin/Dextromethorphan (Robitussin Dm) 10 ml PO Q4H PRN PRN Reason: Cough and congestion Last Admin: 11/07/16 10:37 Dose: 10 ml Heparin Sodium (Porcine) (Heparin) 5,000 units SC Q8 [facility] Last Admin: 11/09/16 15:11 Dose: 5,000 units Hydroxyurea (Hydrea) 500 mg PO DAILY [facility] Last Admin: 11/09/16 12:22 Dose: Not Given Sodium Chloride (Sodium Chloride 0.9%) 1,000 mls @ 75 mls/hr IV .[id number] [facility] Last Admin: 11/09/16 13:52 Dose: 75 mls/hr Vancomycin HCl 1,000 mg/ (Sodium Chloride) 250 mls @ 166.6 mls/hr IVPB ONCE ONE Stop: 11/09/16 19:30 Meropenem 1 gm/ Sodium (Chloride) 100 mls @ 100 mls/hr IVPB ONCE ONE Stop: 11/09/16 19:59 Meropenem 500 mg/ Sodium (Chloride) 100 mls @ 100 mls/hr IVPB Q12 [facility] Zolpidem Tartrate (Ambien) 5 mg PO HS PRN PRN Reason: Insomnia Physical Exam - Constitutional Appears: Toxic, Confused, Cachectic, Chronically Ill - Head Exam Head Exam: ATRAUMATIC - Eye Exam Eye Exam: Normal appearance - ENT Exam ENT Exam: Mucous Membranes Dry - Neck Exam Neck exam: Negative for: Full Rom, Lymphadenopathy Additional comments: DECREASED RANGE OF MOTION IN ALL DIRECTIONS - Respiratory Exam Respiratory Exam: Decreased Breath Sounds, NORMAL BREATHING PATTERN - Cardiovascular Exam Cardiovascular Exam: Tachycardia - GI/Abdominal Exam GI & Abdominal Exam: Normal Bowel Sounds, Soft. absent: Rebound, Rigid Additional comments: FULLNESS OF THE LIVER - Rectal Exam Rectal Exam: Deferred - Extremities Exam Extremities exam: Positive for: pedal pulses present. Negative for: calf tenderness, pedal edema, tenderness - Neurological Exam Neurological exam: Altered Results - Vital Signs Recent Vital Signs: Last Vital Signs Temp 99.5 F 11/09/16 16:37 Pulse 107 H 11/09/16 16:37 Resp 18 11/09/16 16:37 BP 134/70 11/09/16 16:37 Pulse Ox 95 11/09/16 16:37 - Labs Result Diagrams: 11/09/16 07:01 11/09/16 07:01 Labs: Laboratory Results - last 24 hr 11/09/16 11/09/16 07:01 07:01 WBC 22.9 H D RBC 5.47 Hgb 11.2 L Hct 35.7 MCV 65.2 L MCH 20.5 L MCHC 31.4 L RDW 15.6 H Plt Count 162 MPV 9.3 Neutrophils % (Manual) 7 L Lymphocytes % (Manual) 11 L Monocytes % (Manual) 44 H Metamyelocytes % 2 H Blast Cells % 36 H Platelet Estimate Normal Large Platelets Present Giant Platelets Present Hypochromasia (manual) Slight Poikilocytosis (manual Slight Anisocytosis (manual) Slight Microcytosis (manual) Slight Ovalocytes Slight Sodium 149 H Potassium 4.7 Chloride 112 H Carbon Dioxide 20 L Anion Gap 22 H BUN 107 H* D Creatinine 3.5 H Est GFR ( Amer) 21 Est GFR (Non-Af Amer) 17 Random Glucose 117 H Calcium 7.8 L Phosphorus 9.3 H Magnesium 2.7 H Total Bilirubin 0.7 AST 230 H D ALT 101 H D Alkaline Phosphatase 79 Total Protein 7.4 Albumin 3.6 Globulin 3.8 Albumin/Globulin Ratio 0.9 L Assessment & Plan (1) Sepsis Status: Acute Priority: High Comment: SOURCE TO BE IDENTIFIED-INFEECTION VS TUMOR LYSIS. REC/S BLOOD AND URINE. THEN START SOTERO: VANCOMYCIN AND MERREM. PROGNOSIS LIMITED. (2) Leukemia Status: Acute Priority: High (3) MELISSA (acute kidney injury) Status: Acute Priority: Medium (4) Parkinsonian tremor Status: Chronic (5) Pneumonia Status: Suspected Priority: Low Comment: ASPIRATION VS SUPERINFECTION
[2016-11-09] MEDS ORDERED: Meropenem 1 GM in Sodium Chloride 0.9% 100 ML IVPB ONE (19:00)
[2016-11-09 20:14] LABS: RBC URINE 161 /hpf (0-3); URINE BACTERIA FEW (<OCC); URINE BILIRUBIN NEGATIVE (NEGATIVE); URINE BLOOD 3+ (NEGATIVE); URINE COLOR Yellow (YELLOW); URINE GLUCOSE (UA) NORMAL (Normal); URINE KETONE NEGATIVE (NEGATIVE); URINE PROTEIN 1+ mg/dL (NEGATIVE); URINE UROBILINOGEN NORMAL mg/dL (0.2-1.0); WBC URINE 9 /hpf (0-5)
[2016-11-09 20:15] LABS: URINE LEUKOCYTE ESTERASE 1+ Leu/uL (Negative)
[2016-11-09 20:59] VITALS: RESP 20; O2SAT 98
--- NOTE | 2016-11-09 21:32 | CP.PCM.PN ---
Subjective - Date & Time of Evaluation Date of Evaluation: 11/09/16 Time of Evaluation: 21:30 - Subjective Subjective: Patient developed an acute renal failure and fever. On IVF and IV Vancomycin and Meropenem. Lathagic, in NAD. CXR: minimal infiltrate of the RLL. Objective - Vital Signs/Intake and Output Vital Signs (last 24 hours): Temp Pulse Resp BP Pulse Ox 101 F H 92 H 20 134/70 98 11/09/16 19:30 11/09/16 19:30 11/09/16 19:30 11/09/16 16:37 11/09/16 19:30 Intake and Output: 11/09/16 11/10/16 18:59 06:59 Intake Total 0 Balance 0 - Medications Medications: Current Medications Acetaminophen (Tylenol 325mg Tab) 650 mg PO Q6 PRN PRN Reason: Fever >100.4 F Last Admin: 11/01/16 13:11 Dose: 650 mg Acetaminophen (Tylenol 650 Mg Supp) [address] Q6 PRN PRN Reason: Fever >100.4 F Last Admin: 11/09/16 15:11 Dose: 650 mg Albuterol/Ipratropium (Duoneb 3 Mg/0.5 Mg (3 Ml) Ud) 3 ml INH RQ6 [facility] Last Admin: 11/09/16 19:48 Dose: 3 ml Carbidopa/Levodopa (Sinemet) 1 tab PO TID [facility] Last Admin: 11/09/16 18:17 Dose: 1 tab Entacapone (Comtan) 200 mg PO Q8H [facility] Last Admin: 11/09/16 12:23 Dose: Not Given Guaifenesin/Dextromethorphan (Robitussin Dm) 10 ml PO Q4H PRN PRN Reason: Cough and congestion Last Admin: 11/07/16 10:37 Dose: 10 ml Heparin Sodium (Porcine) (Heparin) 5,000 units SC Q8 [facility] Last Admin: 11/09/16 15:11 Dose: 5,000 units Hydroxyurea (Hydrea) 500 mg PO DAILY [facility] Last Admin: 11/09/16 12:22 Dose: Not Given Sodium Chloride (Sodium Chloride 0.9%) 1,000 mls @ 75 mls/hr IV .[id number] [facility] Last Admin: 11/09/16 13:52 Dose: 75 mls/hr Meropenem 500 mg/ Sodium (Chloride) 100 mls @ 100 mls/hr IVPB Q12 [facility] Zolpidem Tartrate (Ambien) 5 mg PO HS PRN PRN Reason: Insomnia - Labs Labs: 11/09/16 07:01 11/09/16 07:01 PT 13.8 SECONDS (9.7-12.2) H 11/04/16 06:24 INR 1.2 11/04/16 06:24 APTT 34 SECONDS (21-34) 11/04/16 06:24 - Constitutional Appears: Chronically Ill - Head Exam Head Exam: NORMOCEPHALIC - Eye Exam Eye Exam: Normal appearance - ENT Exam ENT Exam: Normal Exam - Neck Exam Neck Exam: Normal Inspection - Respiratory Exam Respiratory Exam: Rhonchi - Cardiovascular Exam Cardiovascular Exam: Tachycardia, REGULAR RHYTHM - GI/Abdominal Exam GI & Abdominal Exam: Soft, Normal Bowel Sounds - Rectal Exam Rectal Exam: Deferred - Extremities Exam Extremities Exam: Normal Inspection - Back Exam Back Exam: NORMAL INSPECTION - Neurological Exam Additional comments: Lethargic. - Psychiatric Exam Additional comments: Lethargic. 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 Status: Acute
[2016-11-10] MEDS: Meropenem 500 MG in Sodium Chloride 0.9% 100 ML IVPB SCH ×2 (00:11→11:07)
[2016-11-10] MEDS: Albuterol-Ipratrop 3 mg / 0.5 (3 ml) UD INH SCH ×2 (01:11→07:52)
[2016-11-10] MEDS: Sodium Chloride 0.9% 1,000 ML IV SCH (03:20)
[2016-11-10 08:08] LABS: POTASSIUM 4.6 mmol/L (3.6-5.2)
[2016-11-10 08:10] LABS: ALB/GLOB RATIO 0.8 (1.0-2.1); BILIRUBIN,TOTAL 0.8 mg/dL (0.2-1.3); TOTAL PROTEIN 7.2 g/dL (6.3-8.3)
[2016-11-10 08:11] LABS: CALCIUM 7.6 mg/dl (8.6-10.4)
[2016-11-10 09:51] VITALS: BP 166/84; PULSE 112; TEMP 98.3
[2016-11-10] MEDS ORDERED: Sodium Chloride 0.45% 1,000 ML IV SCH (10:45)
--- NOTE | 2016-11-10 10:49 | CP.PCM.PN ---
Subjective - Date & Time of Evaluation Date of Evaluation: 11/10/16 Time of Evaluation: 10:47 - Subjective Subjective: seen and examined, notes reviewed afebrile. wbc improved. creatinine slightly improved. 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 being moved to [place]. family at bedside Objective - Vital Signs/Intake and Output Vital Signs (last 24 hours): Temp Pulse Resp BP Pulse Ox 98.3 F 112 H 20 166/84 H 98 11/10/16 08:00 11/10/16 08:00 11/10/16 08:00 11/10/16 08:00 11/10/16 08:00 Intake and Output: 11/10/16 11/10/16 06:59 18:59 Intake Total 1225 Output Total 600 Balance 625 - Medications Medications: Current Medications Acetaminophen (Tylenol 325mg Tab) 650 mg PO Q6 PRN PRN Reason: Fever >100.4 F Last Admin: 11/01/16 13:11 Dose: 650 mg Acetaminophen (Tylenol 650 Mg Supp) 650 mg [place] Q6 PRN PRN Reason: Fever >100.4 F Last Admin: 11/09/16 22:34 Dose: 650 mg Albuterol/Ipratropium (Duoneb 3 Mg/0.5 Mg (3 Ml) Ud) 3 ml INH RQ6 [facility] Last Admin: 11/10/16 07:52 Dose: 3 ml Carbidopa/Levodopa (Sinemet) 1 tab PO TID [facility] Last Admin: 11/09/16 18:17 Dose: 1 tab Entacapone (Comtan) 200 mg PO Q8H [facility] Last Admin: 11/10/16 00:11 Dose: Not Given Guaifenesin/Dextromethorphan (Robitussin Dm) 10 ml PO Q4H PRN PRN Reason: Cough and congestion Last Admin: 11/07/16 10:37 Dose: 10 ml Heparin Sodium (Porcine) (Heparin) 5,000 units SC Q8 [facility] Last Admin: 11/10/16 05:58 Dose: 5,000 units Hydroxyurea (Hydrea) 500 mg PO DAILY [facility] Last Admin: 11/09/16 12:22 Dose: Not Given Meropenem 500 mg/ Sodium (Chloride) 100 mls @ 100 mls/hr IVPB Q12 [facility] Last Admin: 11/10/16 00:11 Dose: 100 mls/hr Sodium Chloride (Sodium Chloride 0.45%) 1,000 mls @ 75 mls/hr IV .[id number] [facility] Sevelamer Carbonate (Renvela) 2.4 gm PO TIDCC [facility] Zolpidem Tartrate (Ambien) 5 mg PO HS PRN PRN Reason: Insomnia - Labs Labs: 11/09/16 07:01 11/10/16 07:17 PT 13.8 SECONDS (9.7-12.2) H 11/04/16 06:24 INR 1.2 11/04/16 06:24 APTT 34 SECONDS (21-34) 11/04/16 06:24 - Constitutional Appears: Non-toxic, No Acute Distress, Cachectic, Chronically Ill - Head Exam Head Exam: NORMAL INSPECTION - Eye Exam Eye Exam: Normal appearance - ENT Exam ENT Exam: Mucous Membranes Moist, Normal Exam - Neck Exam Neck Exam: Normal Inspection - Respiratory Exam Respiratory Exam: Decreased Breath Sounds, NORMAL BREATHING PATTERN - Cardiovascular Exam Cardiovascular Exam: REGULAR RHYTHM, RRR - GI/Abdominal Exam GI & Abdominal Exam: Distended, Soft - Extremities Exam Extremities Exam: Normal Inspection Assessment and Plan (1) Tumor lysis syndrome Status: Acute (2) MELISSA (acute kidney injury) Status: Acute (3) Leukemia Status: Acute (4) Leukocytosis (leucocytosis) Status: Acute (5) Pneumonia Status: Suspected - Assessment and Plan (Free Text) Assessment: -maintain iv fluids, switch to 1/2NS -check uric acid -add phos binder -low k diet -maintain brock -may need HIRED HELP, family made aware. overall very poor prognosis
[2016-11-10] MEDS ORDERED: Sevelamer Carb 2.4 gm/Packet PO SCH (12:00)
== END 2016-11-10 11:30 | disposition short-term general hospital (02) | DRG 193 ==
LOC: C.ER 17:17 → C.9E 18:13 → OBSVTOIN 18:13 → C.3T 22:06
PROVIDERS: ADMIT Internal Medicine Cardiovascular Disease; ATTEND Internal Medicine Cardiovascular Disease
PROC: 0T9B70Z Drainage of Bladder with Drainage Device, Via Natural or Artificial Opening (ICD-10-PCS; principal; 2016-11-09)
DX: J18.9 Pneumonia, unspecified organism (principal); E88.3 Tumor lysis syndrome; C92.00 Acute myeloblastic leukemia, not having achieved remission; N17.9 Acute kidney failure, unspecified; G20 Parkinson's disease; N32.0 Bladder-neck obstruction; R33.8 Other retention of urine; I10 Essential (primary) hypertension; G30.9 Alzheimer's disease, unspecified; F02.80 Dementia in other diseases classified elsewhere, unspecified severity, without behavioral disturbance, psychotic disturbance, mood disturbance, and anxiety; Z85.46 Personal history of malignant neoplasm of prostate; Z90.79 Acquired absence of other genital organ(s); Z92.3 Personal history of irradiation; Z87.891 Personal history of nicotine dependence